=== PATIENT | female | born 1955 | race Caucasian/White ===

== ENCOUNTER → 2018-05-22 | Outpatient (CLI) | payer OTHER ==
[~2018-05-22] MED LIST: cymbalta; gabapentin; losartan; metformin; pravastatin; seroquel
--- NOTE | 2018-05-22 16:48 | Diagnostic Imaging Report ---
CLINICAL INDICATION: Patient was head butted by her dog, patient has pain and swelling to nose. EXAM: X-ray of the skull, multiple views, and lateral nasal bone views. COMPARISON: None. FINDINGS AND IMPRESSION: 1: There is no craniofacial fracture. The nasal bone is intact. There is leftward nasal septal deviation which may be chronic. Of note, x-rays of the skull have low sensitivity for subtle craniofacial fractures. If there is continued concern, maxillofacial CT scan would better evaluate. 2: The visualized paranasal sinuses are grossly unremarkable. Dictated by: Dictated on workstation # [id number]
== END ==
LOC: RAD FS 15:54
PROVIDERS: ATTEND Family Medicine
DX: S09.92XA Unspecified injury of nose, initial encounter (principal); J34.2 Deviated nasal septum; W54.1XXA Struck by dog, initial encounter
CPT/HCPCS: 70160

== ENCOUNTER 2018-07-14 05:42 | Outpatient (CLI) | payer MEDICARE ==
[~2018-07-14] VITALS: Ht 157.5 cm; Wt 57.8 kg
[2018-07-14] MEDS ORDERED: CITA10TA7 PO (10:14)
[2018-07-14] MEDS ORDERED: VARE1TAB22 PO (10:14)
[2018-07-14] MEDS ORDERED: CYCL10TA9 PO (10:14)
[2018-07-14] MEDS ORDERED: LISI1TAB10 PO (10:14)
[2018-07-14] MEDS ORDERED: TRAZ150T72 PO (10:14)
[2018-07-14] MEDS ORDERED: ATOR20TA66 PO (10:14)
[2018-07-14] MEDS ORDERED: CARV12.53 PO (10:14)
[2018-07-14] MEDS ORDERED: PANT40TA3 PO (10:14)
[2018-07-14] MEDS ORDERED: GLIP10TA13 PO (10:14)
[2018-07-14] MEDS ORDERED: METF-399 PO (10:14)
== END 2018-07-14 10:21 | disposition home or self-care (01) ==
LOC: PREOP 05:42
PROVIDERS: ATTEND Surgery
DX: Z01.818 Encounter for other preprocedural examination (principal)

== ENCOUNTER 2018-07-18 09:38 | Day surgery (SDC) | payer MEDICARE ==
[2018-07-18] VITALS (11 sets, daily range): BP systolic 143–226; BP diastolic 78–115
[~2018-07-18] VITALS: Ht 157.5 cm; Wt 57.8 kg
[~2018-07-18 09:38] MED LIST changes: +ATOR20TA66 PO; +CARV12.53 PO; +CITA10TA7 PO; +CYCL10TA9 PO; +GLIP10TA13 PO; +LISI1TAB10 PO; +METF-399 PO; +PANT40TA3 PO; +TRAZ150T72 PO; +VARE1TAB22 PO
--- OUTSIDE RECORDS SUMMARY | 2018-07-18 09:41 | XMS REPORT | Continuity of Care Document ---
Author Organization Unknown Address Unknown Allergies Active Description Code Type Severity Reaction Onset Reported/Identified Relationship to Patient Clinical Status Yes venom-honey bee [id number] Drug Allergy Unknown N/A 08/24/2013 Medications There is no data. Problems Date Dx Coded Attending Type Code Diagnosis Diagnosed By 08/25/2013 MARK WHITNEY MD Ot 305.20 CANNABIS ABUSE-UNSPEC 08/25/2013 MARK WHITNEY MD Ot 305.90 DRUG ABUSE NEC-UNSPEC 08/25/2013 MARK WHITNEY MD Ot 438.89 OTH LATE EFFECT-CEREBROVASCULAR DISEASE 08/25/2013 MARK WHITNEY MD Ot 728.87 MUSCLE WEAKNESS (GENERALIZED) 08/25/2013 MARK WHITNEY MD Ot 780.97 ALTERED MENTAL STATUS 08/25/2013 MARK WHITNEY MD Ot V15.88 HISTORY OF FALL 08/25/2013 MARK WHITNEY MD Ot V71.4 OBSERV-ACCIDENT NEC 05/22/2018 KHUSHI TILLMAN DO Ot 575.8 DIS OF GALLBLADDER NEC 05/29/2018 ALISON LEOS MD Ot J34.2 DEVIATED NASAL SEPTUM 05/29/2018 ALISON LEOS MD Ot S09.92XA UNSPECIFIED INJURY OF NOSE, INITIAL ENCO 05/29/2018 ALISON LEOS MD Ot W54.1XXA STRUCK BY DOG, INITIAL ENCOUNTER 06/05/2018 ALISON LEOS MD, Ot J34.2 DEVIATED NASAL SEPTUM 06/05/2018 ALISON LEOS MD Ot S09.92XA UNSPECIFIED INJURY OF NOSE, INITIAL ENCO 06/05/2018 ALISON LEOS MD Ot W54.1XXA STRUCK BY DOG, INITIAL ENCOUNTER 06/05/2018 KHUSHI TILLMAN DO Ot 575.8 DIS OF GALLBLADDER NEC 06/05/2018 ALISON LEOS MD, Ot J34.2 DEVIATED NASAL SEPTUM 06/05/2018 SELF ALISON GABRIEL Ot S09.92XA UNSPECIFIED INJURY OF NOSE, INITIAL ENCO 06/05/2018 SELF ALISON GABRIEL Ot W54.1XXA STRUCK BY DOG, INITIAL ENCOUNTER 06/06/2018 SELF ALISON GABRIEL Ot J34.2 DEVIATED NASAL SEPTUM 06/06/2018 SELF ALISON GABRIEL Ot S09.92XA UNSPECIFIED INJURY OF NOSE, INITIAL ENCO 06/06/2018 SELF ALISON GABRIEL Ot W54.1XXA STRUCK BY DOG, INITIAL ENCOUNTER 06/11/2018 SELF ALISON GABRIEL Ot J34.2 DEVIATED NASAL SEPTUM 06/11/2018 SELF ALISON GABRIEL Ot S09.92XA UNSPECIFIED INJURY OF NOSE, INITIAL ENCO 06/11/2018 SELF ALISNO GABRIEL Ot W54.1XXA STRUCK BY DOG, INITIAL ENCOUNTER Procedures There is no data. Results There is no data. Encounters ACCT No. Visit Date/Time Discharge Status Pt. Type Provider Facility Loc./Unit Complaint [id number] 05/22/2018 15:54:00 05/22/2018 23:59:59 CLS Outpatient SELF ALISON GABRIEL [facility] RAD FS S09.92XA [id number] 08/24/2013 21:21:00 08/25/2013 01:34:00 DIS Emergency MARK WHITNEY MD [facility] ER FALL-HEAD SHOULDER PAIN [id number] 02/23/2013 08:25:00 02/23/2013 23:59:59 CLS Outpatient KHUSHI TILLMAN DO [facility] RAD ENLARGED COMMON BILE DUCT [id number] 07/18/2018 11:00:00 PEN Preadmit GIANLUCA AVILA MD [facility] ENDO HX POLYPS/DYSPHAGIA [id number] 02/23/2013 08:29:03 ACT Document Registration
[2018-07-18] MEDS ORDERED: NS IV 500 ML 500 ML ONE (09:58)
[2018-07-18] MEDS ORDERED: NS IV 500 ML 500 ML IV PRN (10:34)
[2018-07-18] MEDS ORDERED: MIDAZOLAM 2 MG/2 ML (VERSED) VIAL IVP ONE (10:45)
[2018-07-18] MEDS ORDERED: LIDOCAINE JELLY 2% 6 ML SYRINGE MM PRN (10:45)
[2018-07-18] MEDS ORDERED: HURRICAINE EXT TUBE (BENZOCAINE) XX PRN (10:45)
[2018-07-18] MEDS ORDERED: fentaNYL INJECTION 100 MCG/2 ML AMP IVP ONE (10:45)
[2018-07-18] MEDS ORDERED: MELA10TA2 PO (10:53)
--- NOTE | 2018-07-18 11:06 | Conscious Sedation/ASA ---
Conscious Sedation Pre-Proced Time 11:00 ASA Score 2 For ASA 3 and 4: Consider anesthesia and medical clearance. Also, for patients with a history of failed moderate sedation consider anesthesia. Airway Lungs Heart ASA score ASA 1: a normal healthy patient ASA 2: a patient with a mild systemic disease (mid diabetes, controlled hypertension, obesity ASA 3: a patient with a severe systemic disease that limits activity (angina , COPD, prior Myocardial infarction) ASA 4: a patient with an incapacitating disease that is a constant threat to life (CHF, renal failure) ASA 5: a moribund patient not expected to survive 24 hrs. (ruptured aneurysm) ASA 6: a declared brain- patient whose organs are being harvested. For emergent operations, add the letter E after the classification Mallampati Classification Grade 2 Sedation Plan Analgesia, Amnesia, Plan communicated to team members, Discussed options with patient/fam, Discussed risks with patient/fam The patient is an appropriate candidate to undergo the planned procedure, sedation, and anesthesia. The patient immediately re-assessed prior to indication. GIANLUCA AVILA MD July 18, 2018 11:06
--- NOTE | 2018-07-18 11:07 | Progress Note-Pre Operative ---
Pre-Operative Progress Note H&P Reviewed The H&P was reviewed, patient examined and no changes noted. Date Seen by Provider: July 18, 2018 Time Seen by Provider: 11:00 Date H&P Reviewed: July 18, 2018 Time H&P Reviewed: 11:00 Pre-Operative Diagnosis: dysphagia, family hx colon ca GIANLUCA AVILA MD July 18, 2018 11:07
--- NOTE | 2018-07-18 11:08 | Discharge Inst-Surgical ---
D/C Lap Instructions-[place] Follow Up Activity as tolerated High Fiber Diet 25g or more per day Avoid Alcohol, Caffeine, Spicy [place] and Acid foods. Drink 64 fluid oz or more of fluids per day. Symptoms to Report: Fever over 101 degree F, Nausea/Vomiting If any problems/questions: Contact your physician or go to Emergency Room GIANLUCA AVILA MD July 18, 2018 11:08
[2018-07-18] MEDS ORDERED: ACETAMINOPHEN 325 MG TABLET PO PRN (11:15)
[2018-07-18] MEDS ORDERED: morphine INJ 10 MG/ML 1ML (SYR OR VIAL) IV PRN (11:15)
[2018-07-18] MEDS ORDERED: HYDROcodone/APAP 5 MG/325 MG (LORTAB) TAB PO PRN (11:15)
[2018-07-18] MEDS ORDERED: ONDANSETRON 4 MG/2 ML (SDV) Z0FRAN IV PRN (11:15)
[2018-07-18] MEDS ORDERED: fentaNYL INJECTION 100 MCG/2 ML AMP ONE ×2 (11:32)
[2018-07-18] MEDS ORDERED: LIDOCAINE JELLY 2% 6 ML SYRINGE ONE (11:32)
[2018-07-18] MEDS ORDERED: MIDAZOLAM 2 MG/2 ML (VERSED) VIAL ONE ×6 (11:32→11:33)
[2018-07-18] MEDS ORDERED: HURRICAINE EXT TUBE (BENZOCAINE) ONE (11:33)
--- NOTE | 2018-07-18 13:00 | Progress Note-Post Operative ---
Post-Operative Progess Note Surgeon (s)/Racing Car Driver (s) Surgeon GIANLUCA AVILA MD Racing Car Driver: none Pre-Operative Diagnosis dysphagia, family hx colon ca Post-Operative Diagnosis reflux eosphagitis(stage 2), mild distal esophageal stricture vs. achalasia, small HH(1.5cm), moderate gastritis. mild chronic stage 2 ext and int hemorrhoids. Procedure & Operative Findings Date of Procedure 07/18/18 Procedure Performed/Findings EGD with bx. Colonoscopy. Anesthesia Type cs Estimated Blood Loss Estimated blood loss (mL): minimal Specimens/Packing Specimens Removed ge jxn, antrum. GIANLUCA AVILA MD July 18, 2018 13:00
[2018-07-18] MEDS ORDERED: ONDANSETRON 4 MG/2 ML (SDV) Z0FRAN ONE (14:17)
[2018-07-18] MEDS ORDERED: ENALAPRILAT 2.5 MG/2 ML (VASOTEC) VIAL IV ONE ×2 (14:49→15:00)
--- NOTE | 2018-07-19 00:09 | OPERATIVE REPORT ---
DATE OF SERVICE: 07/18/2018 ATTENDING PRIMARY CARE PHYSICIAN: Dr. Taylor Carmichael. PREOPERATIVE DIAGNOSES: Dysphagia, history of colon polyp. POSTOPERATIVE DIAGNOSES: Reflux esophagitis, stage II, mild distal esophageal stricture, small hiatal hernia approximately 1.5 cm in size, moderate severity gastritis, no distal obstructions, chronic stage II external and internal hemorrhoids. Remainder of the rectum and colon were normal. PROCEDURES: EGD with biopsy and balloon dilatation, colonoscopy. We then proceeded with dilatation of the distal esophagus. The balloon was placed in the stomach and pulled back to the area of the lower esophagus and dilated to 2 atmospheres of pressure with no resistance. We then proceeded to 4 atmospheres of pressure with no resistance. We then proceeded to 6 atmospheres of pressure with mild to moderate resistance and left this in place for approximately 60 seconds. The balloon was then desufflated and removed with visualization of good hemostasis as well as no mucosal tears. SURGEON: Gianluca Avila MD ANESTHESIA: Conscious sedation. ESTIMATED BLOOD LOSS: Minimal. FINDINGS: As above in the postoperative diagnoses. DISPOSITION: The patient tolerated the procedure well. INDICATIONS: The patient is a 63-year-old female who has had dysphagia in the past. She reports that with some food she has choking episodes and difficulty swallowing. When this does occur, she also does have some regurgitation. She also does have a history of gastroesophageal reflux disease and is currently on Protonix 40 mg daily. She states that she did have an upper endoscopy done approximately 5 years ago where dilatation procedure was performed. Her last colonoscopy was 5 years ago and she believes this to be normal. She states that she has had polyps in the past. She does report that she does have soft stools and diarrhea; however, this may be medication related. DESCRIPTION OF PROCEDURE: The patient was brought to the endoscopy suite, laid in the left lateral decubitus position. After adequate IV pain and sedative medications and conscious sedation anesthesia, the mouthpiece was applied. Endoscope was placed in the mouth, visualizing the pharynx and hypopharyngeal region. Vocal cords, epiglottis and vallecula identified and appeared to be normal. The endoscope was gently intubated at the esophageal opening and esophagus insufflated. The endoscope was then advanced to the first, second and third portion of esophagus to the level of the GE junction and reflux esophagitis stage II identified. There was also either a mild distal esophageal stricture versus hypertonicity of the lower esophageal sphincter tone. A biopsy was taken of the GE junction using forceps with visualization of good hemostasis. The endoscope was then advanced into the stomach and endoscope retroflexed, visualizing a small hiatal hernia approximately 1.5 cm in size. There was a moderate severity gastritis noted as well as either a submucosal lipoma or a polyp of the antrum of the stomach, which was biopsied. The endoscope was then advanced to the pylorus and the first and second portions of the duodenum, which appeared normal with no distal obstructions. The endoscope was slowly withdrawn while taking second look and suctioning of residual air with no additional findings. The patient tolerated this portion of procedure well. We will recommend the necessary lifestyle and diet accommodation including small and more frequent meals, avoidance of eating at night as well as head elevation while lying supine. She also needs to proceed with cessation of smoking, as well as caffeinated beverages and spicy, greasy and acidic foods. We will also have her continue with the Protonix daily. We also did proceed with a dilatation procedure and this may have been due to a mild distal esophageal stricture or as well as an achalasia. We will see how she does. If she has recurrence of symptoms, the next step would be esophageal manometry study to see if this is an anatomic stricture versus increased lower esophageal sphincter tone versus the possibility of the hiatal hernia causing compression and dysphagia. Under the same anesthesia, we then proceeded with the colonoscopy portion of the procedure. A digital rectal examination was performed, which revealed mild chronic stage II external and internal hemorrhoids, not actively edematous nor inflamed and no bleeding. Normal sphincter tone was felt and there were no palpable masses. The endoscope was then intubated and anus and rectum gently insufflated. The endoscope was then advanced to the valves of [place] of the rectum with no polyps or any neoplasms identified. We then proceeded with the sigmoid colon where no diverticulosis identified. We then proceeded to remainder of the descending, transverse and ascending colon to the cecum. There appeared to be a submucosal lipoma near the cecum; however, no mucosal lesions or polyps identified. Endoscope was then slowly withdrawn while taking a second look and suctioning of residual air with no additional findings. The patient tolerated the procedure well. We will recommend adding fiber to her diet and titrate on a daily basis to promote soft stools on a daily basis, not liquid diarrhea daily as well as no constipation or formed stools. She does not have any family history of colon cancer. She may wait another 10 years for next colonoscopy; however, sooner if she becomes symptomatic. Job ID: [id number] DocumentID: [id number] Dictated Date: 07/18/2018 12:52:58 Casting House Worker Date: 07/19/2018 00:08:30 Dictated By: GIANLUCA AVILA MD
== END 2018-07-18 15:35 | disposition home or self-care (01) ==
LOC: ENDO 09:38
PROVIDERS: ATTEND Surgery
DX: Z12.11 Encounter for screening for malignant neoplasm of colon (principal); K64.1 Second degree hemorrhoids; Z87.19 Personal history of other diseases of the digestive system; K22.0 Achalasia of cardia; K22.2 Esophageal obstruction; K21.0 Gastro-esophageal reflux disease with esophagitis; K44.9 Diaphragmatic hernia without obstruction or gangrene; K29.70 Gastritis, unspecified, without bleeding; E11.9 Type 2 diabetes mellitus without complications; I10 Essential (primary) hypertension; E78.00 Pure hypercholesterolemia, unspecified; F17.210 Nicotine dependence, cigarettes, uncomplicated; Z79.84 Long term (current) use of oral hypoglycemic drugs; Z79.899 Other long term (current) drug therapy
CPT/HCPCS: 43239; 43249; G0121; 82962; 88305

== ENCOUNTER → 2018-10-27 | Outpatient (CLI) | payer MEDICARE ==
[~2018-10-27] MED LIST changes: +MELA10TA2 PO
--- NOTE | 2018-10-27 15:55 | Diagnostic Imaging Report ---
PROCEDURE: US Bilateral lower extremity arterial. TECHNIQUE: Multiple real-time grayscale images are obtained through both lower extremity arterial systems with color Doppler imaging and color Doppler spectral analysis. INDICATION: Claudication. FINDINGS: Monophasic waveforms are identified throughout the entire right lower extremity arterial system. Velocities are unremarkable. No high-grade stenosis or occlusion is seen. There is predominately biphasic waveforms throughout the left lower extremity arterial system. No definite high-grade stenosis or occlusion is seen. No fluid collections are identified. IMPRESSION: Monophasic waveforms throughout the right lower extremity arterial system, perhaps owing to more proximal disease. No definite high-grade stenosis or occlusion is identified within either lower extremity arterial system. Dictated by: Dictated on workstation # [id number]
== END ==
LOC: RAD 11:50
PROVIDERS: ATTEND Family Medicine
DX: I73.9 Peripheral vascular disease, unspecified (principal); I10 Essential (primary) hypertension
CPT/HCPCS: 93925

== ENCOUNTER 2018-11-13 17:32 | Emergency (ER) | payer MEDICARE ==
[~2018-11-13] VITALS: Ht 157.5 cm; Wt 56.7 kg
[2018-11-13] MEDS ORDERED: ASPIRIN E.C. 81 MG (ECOTRIN) TAB PO ONE (17:45)
[2018-11-13 17:49] LABS: BASOPHILS % (AUTO) 1 % (0-10); EOSINOPHILS # (AUTO) 0.2 10^3/uL (0.0-0.3); EOSINOPHILS % (AUTO) 2 % (0-10); HEMATOCRIT 38 % (35-52); HEMOGLOBIN 14.1 G/DL (11.5-16.0); LYMPHOCYTES # (AUTO) 2.9 X 10^3 (1.0-4.0); LYMPHOCYTES % (AUTO) 36 % (12-44); MEAN CORPUSCULAR HEMOGLOBIN 33 PG (25-34); MEAN CORPUSCULAR HGB CONC 37 G/DL (32-36); MEAN CORPUSCULAR VOLUME 88 FL (80-99); MONOCYTES # (AUTO) 0.7 X 10^3 (0.0-1.0); MONOCYTES % (AUTO) 9 % (0-12); NEUTROPHILS # (AUTO) 4.4 X 10^3 (1.8-7.8); NEUTROPHILS % (AUTO) 53 % (42-75); PLATELET COUNT 254 10^3/uL (130-400); RED CELL DISTRIBUTION WIDTH 11.8 % (10.0-14.5); WHITE BLOOD COUNT 8.3 10^3/uL (4.3-11.0)
--- NOTE | 2018-11-13 17:50 | ED General ---
General Stated Complaint: HTN Source of Information: Patient Exam Limitations: No Limitations History of Present Illness Date Seen by Provider: Nov 13, 2018 Time Seen by Provider: 17:45 Initial Comments To ER per EMS with reports of hypertension. She initially presented to her eye doctor, Dr. Michaud this morning and was advised that she should go see a doctor because of her high blood pressure. She then went to urgent care this afternoon where she was found to have a high blood pressure of 230/123 with a heart rate in the 70s. She developed an episode of chest pressure lasting a few minutes and resolved. She does have a history of "a blockage outside my heart that he opened up". She does not have any coronary stents that she is aware of. This was done in [place]. She did have an ultrasound done of leg arteries due to "burning in my legs when i walk". Smoked 1 pack of cigarettes daily from age 11 to age 63, quit 1 week ago. Shes been out of her blood pressure medication for 1 month. U isac arrival to ER, she is asymptomatic. Timing/Duration: 1-2 Days Severity: Moderate Associated Systoms: Chest Pain Allergies and Home Medications Allergies Coded Allergies: venom-honey bee (Unverified Allergy, Unknown, 07/14/18) Home Medications Atorvastatin Calcium 20 Mg Tablet, 20 MG PO HS, (Reported) Carvedilol 12.5 Mg Tablet, 12.5 MG PO BID, (Reported) Citalopram Hydrobromide 10 Mg Tablet, 10 MG PO DAILY, (Reported) Cyclobenzaprine HCl 10 Mg Tablet, 10 MG PO TID PRN for MUSCLE SPASMS, (Reported) Glipizide 10 Mg Tablet, 10 MG PO BID, (Reported) Lisinopril/Hydrochlorothiazide 1 Each Tablet, 1 EACH PO DAILY, (Reported) Melatonin 10 Mg Tablet, 10 MG PO HS, (Reported) Metformin HCl 1,000 Mg Tablet, 1,000 MG PO BID, (Reported) Pantoprazole Sodium 40 Mg Tablet.dr, 40 MG PO DAILY, (Reported) Trazodone HCl 150 Mg Tablet, 150 MG PO HS, (Reported) Varenicline Tartrate 1 Mg Tablet, 1 MG PO BID, (Reported) Patient Home Medication List Home Medication List Reviewed: Yes Review of Systems Review of Systems Constitutional: see HPI EENTM: see HPI Respiratory: no symptoms reported, dyspnea on exertion Genitourinary: no symptoms reported Musculoskeletal: no symptoms reported Skin: no symptoms reported Psychiatric/Neurological: No Symptoms Reported Hematologic/Lymphatic: No Symptoms Reported Past Xscrbny-Ktdgzb-Ukbosz Hx Patient Social History Type Used: Cigarettes 2nd Hand Smoke Exposure: Yes Recent Hopitalizations: No Immunizations Up To Date Date of Pneumonia Vaccine: Dec 23, 2017 Date of Influenza Vaccine: Dec 23, 2017 Seasonal Allergies Seasonal Allergies: Yes Past Medical History Surgeries: Yes (BACK, R SHOULDER, R WRIST, R KNEE, BILAT MASTECTOMY W/IMPLANTS) Adenoidectomy, Appendectomy, Gallbladder, Hysterectomy, Oophorectomy, Tonsillectomy Respiratory: No Cardiac: Yes (ANGIOPLASTY) High Cholesterol, Hypertension Neurological: Yes Stroke Sexually Transmitted Disease: No HIV/AIDS: No Genitourinary: No Gastrointestinal: Yes Gastroesophageal Reflux Musculoskeletal: Yes Arthritis Endocrine: Yes Diabetes, Non-Insulin dep HEENT: Yes (GLASSES, DENTURES) Cataract Loss of Vision: Bilateral Hearing Impairment: Denies Cancer: Yes Breast Did You Recieve Any Treatments: Yes What Type of Treatment Did You: Surgical Intervention Psychosocial: Yes Depression Integumentary: No Blood Disorders: No Adverse Reaction/Blood Tranf: No (N/A) Physical Exam Vital Signs Vital Signs - First Documented 11/13/18 17:32 Temp 98.2 Pulse 78 Resp 16 B/P (MAP) 219/100 (139) Pulse Ox 98 Capillary Refill : Height, Weight, BMI Height: 5'2.00" Weight: 127lbs. 6.0oz. 57.764045js; 23.3 BMI Method:Stated General Appearance: No Apparent Distress, WD/WN Eyes: Bilateral Eye Normal Inspection, Bilateral Eye PERRL, Bilateral Eye EOMI HEENT: PERRL/EOMI, TMs Normal Neck: Full Range of Motion, Normal Inspection Respiratory: No Accessory Muscle Use, No Respiratory Distress Cardiovascular: Regular Rate, Rhythm, Normal Peripheral Pulses Gastrointestinal: Normal Bowel Sounds, Non Tender, Soft Extremity: Normal Capillary Refill, Normal Inspection, Other (has equal pulses posterior tibial bilaterally +1 and strength. Both feet are equal in temperature) Neurologic/Psychiatric: Alert, Oriented x3 Skin: Normal Color, Warm/Dry Progress/Results/Core Measures Suspected Sepsis SIRS Temperature: Pulse: Respiratory Rate: Laboratory Tests 11/13/18 17:39: White Blood Count 8.3 Blood Pressure / Mean: Laboratory Tests 11/13/18 17:39: Creatinine 0.80, Platelet Count 254, Total Bilirubin 0.6 Results/Orders Lab Results Laboratory Tests Test 11/13/18 17:39 11/13/18 20:12 Range/Units White Blood Count 8.3 4.3-11.0 10^3/uL Red Blood Count 4.33 L 4.35-5.85 10^6/uL Hemoglobin 14.1 11.5-16.0 G/DL Hematocrit 38 35-52 % Mean Corpuscular Volume 88 80-99 FL Mean Corpuscular Hemoglobin 33 25-34 PG Mean Corpuscular Hemoglobin Concent 37 H 32-36 G/DL Red Cell Distribution Width 11.8 10.0-14.5 % Platelet Count 254 130-400 10^3/uL Mean Platelet Volume 10.0 7.4-10.4 FL Neutrophils (%) (Auto) 53 42-75 % Lymphocytes (%) (Auto) 36 12-44 % Monocytes (%) (Auto) 9 0-12 % Eosinophils (%) (Auto) 2 0-10 % Basophils (%) (Auto) 1 0-10 % Neutrophils # (Auto) 4.4 1.8-7.8 X 10^3 Lymphocytes # (Auto) 2.9 1.0-4.0 X 10^3 Monocytes # (Auto) 0.7 0.0-1.0 X 10^3 Eosinophils # (Auto) 0.2 0.0-0.3 10^3/uL Basophils # (Auto) 0.0 0.0-0.1 10^3/uL Sodium Level 140 135-145 MMOL/L Potassium Level 3.3 L 3.6-5.0 MMOL/L Chloride Level 105 98-107 MMOL/L Carbon Dioxide Level 22 21-32 MMOL/L Anion Gap 13 5-14 MMOL/L Blood Urea Nitrogen 11 7-18 MG/DL Creatinine 0.80 0.60-1.30 MG/DL Estimat Glomerular Filtration Rate > 60 BUN/Creatinine Ratio 14 Glucose Level 109 H 70-105 MG/DL Calcium Level 10.0 8.5-10.1 MG/DL Corrected Calcium 9.6 8.5-10.1 MG/DL Magnesium Level 1.5 L 1.6-2.4 MG/DL Total Bilirubin 0.6 0.1-1.0 MG/DL Aspartate Amino Transf (AST/SGOT) 18 5-34 U/L Alanine Aminotransferase (ALT/SGPT) 24 0-55 U/L Alkaline Phosphatase 60 40-136 U/L Troponin I < 0.028 < 0.028 <0.028 NG/ML B-Type Natriuretic Peptide 87.0 <100.0 PG/ML Total Protein 7.1 6.4-8.2 GM/DL Albumin 4.5 3.2-4.5 GM/DL My Orders Orders - MARTHA TAPIA APRN Cbc With Automated Diff (11/13/18 17:43) Comprehensive Metabolic Panel (11/13/18 17:43) Ua Culture If Indicated (11/13/18 17:43) Ed Iv/Invasive Line Start (11/13/18 17:43) Troponin I (11/13/18 17:43) BNP (11/13/18 17:43) Magnesium (11/13/18 17:43) Ekg Tracing (11/13/18 17:43) Chest 1 View, Ap/Pa Only (11/13/18 17:43) Labetalol Injection (Normodyne Injection (11/13/18 17:45) Aspirin Tablet (Aspirin Tablet) (11/13/18 17:58) Clonidine Tablet (Catapres Tablet) (11/13/18 18:15) Aspirin Tablet (Aspirin Tablet) (11/13/18 18:30) Magnesium Oxide Tablet (Mag Ox Tablet) (11/13/18 19:00) Potassium Chloride (Tablet) (Klor Con Ta (11/13/18 19:00) Lisinopril Tablet (Zestril Tablet) (11/13/18 19:00) Troponin I (11/13/18 20:01) Medications Given in ED Current Medications Medications Dose Ordered Sig/Jennifer Route Start Time Stop Time Status Last Admin Dose Admin Aspirin 325 mg ONCE ONCE PO 11/13/18 18:30 11/13/18 18:31 DC 11/13/18 18:07 325 MG Clonidine HCl 0.2 mg ONCE ONCE PO 11/13/18 18:15 11/13/18 18:16 DC 11/13/18 18:46 0.2 MG Labetalol HCl 20 mg ONCE ONCE IV 11/13/18 17:45 11/13/18 17:46 DC 11/13/18 18:10 20 MG Lisinopril 10 mg ONCE ONCE PO 11/13/18 19:00 11/13/18 19:01 DC 11/13/18 19:51 10 MG Magnesium Oxide 400 mg ONCE ONCE PO 11/13/18 19:00 11/13/18 19:01 DC 11/13/18 19:51 400 MG Potassium Chloride 40 meq ONCE ONCE PO 11/13/18 19:00 11/13/18 19:01 DC 11/13/18 19:51 40 MEQ Vital Signs/I&O 11/13/18 17:32 Temp 98.2 Pulse 78 Resp 16 B/P (MAP) 219/100 (139) Pulse Ox 98 Capillary Refill : Departure Impression Primary Impression: Hypertensive heart disease Qualified Codes: I11.9 - Hypertensive heart disease without heart failure Disposition: HOME, SELF-CARE Condition: Stable Departure-Patient Inst. Decision time for Depature: 20:47 Referrals: [facility]/ (PCP) Primary Care Physician SAGE ALANIS MD (Family) Primary Care Physician Patient Instructions: High Blood Pressure (DC) Add. Discharge Instructions: 1. Follow-up with your doctor next week for recheck of blood pressure Scripts Lisinopril (Lisinopril) 10 Mg Tablet 10 MG PO DAILY, #14 TAB Prov: MARTHA TAPIA APRN 11/13/18 MARTHA TAPIA APRN Nov 13, 2018 17:49
[2018-11-13] MEDS ORDERED: ASPIRIN 325 MG (5 GR) TABLET ONE (17:58)
[2018-11-13] MEDS: ASPIRIN 325 MG (5 GR) TABLET PO ONE (18:07)
[2018-11-13 18:09] LABS: ALANINE AMINOTRANSFERASE 24 U/L (0-55); ALBUMIN 4.5 GM/DL (3.2-4.5); ALKALINE PHOSPHATASE 60 U/L (40-136); BILIRUBIN,TOTAL 0.6 MG/DL (0.1-1.0); BUN/CREATININE RATIO 14; CARBON DIOXIDE 22 MMOL/L (21-32); CHLORIDE 105 MMOL/L (98-107); GFR ESTIMATED > 60; GLUCOSE 109 MG/DL (70-105); MAGNESIUM 1.5 MG/DL (1.6-2.4); POTASSIUM 3.3 MMOL/L (3.6-5.0); SODIUM 140 MMOL/L (135-145); TOTAL PROTEIN 7.1 GM/DL (6.4-8.2)
[2018-11-13] MEDS: LABETALOL HCL 20 MG/4 ML VIAL IV ONE (18:10)
--- NOTE | 2018-11-13 18:30 | Diagnostic Imaging Report ---
INDICATION: Hypertension. Portable chest obtained at 6:18 p.m. is compared to 08/24/2013. FINDINGS: Heart and mediastinal silhouette are normal in appearance. The lungs are clear. There is no pneumothorax or pleural fluid. IMPRESSION: Negative chest. Dictated by: Dictated on workstation # [id number]
[2018-11-13] MEDS: cloNIDine 0.1 MG (CATAPRES) TAB PO ONE (18:46)
[2018-11-13] MEDS: lisINopril 10 MG (PRINIVIL) TABLET PO ONE (19:51)
[2018-11-13] MEDS: KCL 10 MEQ TAB (MICRO K) PO ONE (19:51)
[2018-11-13] MEDS: MAGNESIUM OXIDE (MAG-OX)400 MG TAB PO ONE (19:51)
[2018-11-13] MEDS ORDERED: LISI10TA2 PO (20:48)
[2018-11-13 20:52] VITALS: BP 146/62
== END 2018-11-13 20:55 | disposition home or self-care (01) ==
LOC: EDUNIT# 17:32 → ER 17:33
DX: I11.9 Hypertensive heart disease without heart failure (principal); E11.9 Type 2 diabetes mellitus without complications; E78.00 Pure hypercholesterolemia, unspecified; F32.9 Major depressive disorder, single episode, unspecified; K21.9 Gastro-esophageal reflux disease without esophagitis; H54.7 Unspecified visual loss; Z85.3 Personal history of malignant neoplasm of breast; Z86.73 Personal history of transient ischemic attack (TIA), and cerebral infarction without residual deficits; Z87.891 Personal history of nicotine dependence; Z79.84 Long term (current) use of oral hypoglycemic drugs; Z77.22 Contact with and (suspected) exposure to environmental tobacco smoke (acute) (chronic); Z90.89 Acquired absence of other organs; Z90.710 Acquired absence of both cervix and uterus; Z91.14 Patient's other noncompliance with medication regimen
CPT/HCPCS: 36415; 71045; 80053; 83735; 83880; 84484; 85025; 93005

== ENCOUNTER → 2019-12-02 | Outpatient (CLI) | payer MEDICARE, OTHER ==
[~2019-12-02] VITALS: Ht 157 cm; Wt 59.0 kg
[~2019-12-02] MED LIST changes: +CATHETER FLUSH 10 ML SYR IV PRN; +LISI10TA2 PO; -LISI1TAB10 PO; +LISI1TAB26 PO; -PANT40TA3 PO; +PANT40TA52 PO; +REGADENOSON 0.4 MG/5 ML SYR (LEXISCAN) IV ONE
[2019-12-02 12:14] VITALS: BP 199/119
--- NOTE | 2019-12-02 13:34 | Cardiology Stress Test Report ---
Stress Test Report Date of Procedure/Referring: Date of Procedure: Dec 02, 2019 PCP Catherine Monique MD Admitting Physician Center/[facility] Indications: Chest pain Baseline Heart Rate: 75 Baseline Blood Pressure: Blood Pressure Systolic: 199 Blood Pressure Diastolic: 119 Baseline Vitals Vital Signs Date Time Temp Pulse Resp B/P (MAP) Pulse Ox O2 Delivery O2 Flow Rate FiO2 12/02/19 12:14 80 18 199/119 (145) 97 Room Air Baseline EKG: Baseline EKG: normal sinus rhythm Summary After explaining the procedure to the patient, she signed a consent and then brought to the stress nuclear laboratory. Patient received 0.4 mg Lexiscan for stress test, ECG, heart rate and blood pressure were monitored continuously. Resting and stress dose of radio tracer were injected, imaging was acquired and reviewed in short axis, horizontal long axis and vertical long axis views. TID: 1.03 SSS: 1 SDS: 1 EF: 62 1. Patient tolerated Lexiscan well 2. No significant ischemia or infarction on SPECT images 3. Normal left ventricular size, EF 62 percent CATHERINE MONIQUE MD Dec 02, 2019 13:34
== END ==
LOC: CARD 10:38
PROVIDERS: ATTEND Internal Medicine Cardiovascular Disease
DX: E11.9 Type 2 diabetes mellitus without complications (principal); I10 Essential (primary) hypertension; E78.2 Mixed hyperlipidemia; R07.89 Other chest pain
CPT/HCPCS: 78452; 93017; A9502

== ENCOUNTER → 2019-12-10 | Outpatient (CLI) | payer MEDICARE ==
[~2019-12-10] MED LIST changes: -CATHETER FLUSH 10 ML SYR IV PRN; -REGADENOSON 0.4 MG/5 ML SYR (LEXISCAN) IV ONE
--- NOTE | 2019-12-10 14:53 | Diagnostic Imaging Report ---
CT Lung Screening INDICATION:50 pack-year smoking history TECHNIQUE: Noncontrast, low-dose CT imaging performed according to the lung cancer screening protocol. Auto Exposure Controls were utilize during the CT exam to meet ALARA standards for radiation dose reduction. COMPARISON:None FINDINGS: There is no parenchymal lung mass identified. There are mild chronic pulmonary changes bilaterally. There is no sign of failure, pneumonia or a pleural effusion to indicate an acute cardiopulmonary abnormality. The heart size is within normal limits. There are coronary calcifications evident. The aorta is not abnormally dilated. There is no obvious mediastinal or hilar adenopathy. The thyroid gland was partially obscured by streak artifact. However there does seem to be a 6 mm low density nodule in the left lobe of the thyroid. Ultrasound would be recommended for further evaluation. There are bilateral breast implants in place. The implants where visualized seem to be intact. The bone windows show no sign of a fracture or of a destructive lesion. There is degenerative disc and bone disease throughout the thoracic spine, particularly at the T3-T4 level. The sections through the upper abdomen failed to show any sign of an acute abnormality. IMPRESSION: 1. There is no parenchymal lung mass identified to suggest malignancy. A followup low dose lung cancer screening exam in one year would be recommended for further study. 2. There is mild chronic pulmonary disease but there is no evidence for an acute cardiopulmonary abnormality. 3. Ultrasound would be recommended for further evaluation of the 6 mm low density nodule in the left lobe of the thyroid. LUNG-RADS CATEGORY:1S MODIFIER:Thyroid nodule OTHER SIGNIFICANT FINDINGS: Dictated by: Dictated on workstation # [id number]
== END ==
LOC: RAD 14:15
PROVIDERS: ATTEND Nurse Practitioner Family
DX: Z12.2 Encounter for screening for malignant neoplasm of respiratory organs (principal); J98.4 Other disorders of lung; Z87.891 Personal history of nicotine dependence

== ENCOUNTER 2020-04-28 10:37 | Emergency (ER) | payer MEDICARE ==
[~2020-04-28] VITALS: Ht 157.4 cm; Wt 59.5 kg
[~2020-04-28 10:37] MED LIST changes: -LISI10TA2 PO; +LISI10TA25 PO
--- NOTE | 2020-04-28 10:59 | ED Syncope ---
General Stated Complaint: PATEL,N/V Source of Information: Patient, EMS Exam Limitations: No Limitations History of Present Illness Date Seen by Provider: Apr 28, 2020 Time Seen by Provider: 10:45 Initial Comments Patient presents to the ER by EMS from [facility] with chief complaint she walked to the clinic because she she passed out last night was afraid she might pass out again so she did not drive. She said she has chronic nausea and vomiting and last night while bending over into a trash can to retch she lost consciousness and fell forward striking her face causing a small cut on her nose from her eyeglasses. She has a headache today but has not taken anything for the headache. She was advised by the clinic that she could not take anything by mouth because she might have a concussion. Patient denies any fever diarrhea sick contacts cough shortness of air. She denies a history of heart disease. PCP is [facility] at [facility]. Patient notes she has had poor appetite for the past couple days which she says is not unusual for her. She has diabetes but did not check her blood sugar at the time of her syncope because she did not have a kit. She has been out of her medicines for about 2 or 3 days and has not had anything by mouth since yesterday. Patient had a negative stress test by Dr. Morocho in November 2019, 5 months ago. EF of 62%. Allergies and Home Medications Allergies Coded Allergies: venom-honey bee (Unverified Allergy, Unknown, 07/14/18) Home Medications Atorvastatin Calcium 20 Mg Tablet, 20 MG PO HS, (Reported) Carvedilol 12.5 Mg Tablet, 12.5 MG PO BID, (Reported) Citalopram Hydrobromide 10 Mg Tablet, 10 MG PO DAILY, (Reported) Cyclobenzaprine HCl 10 Mg Tablet, 10 MG PO TID PRN for MUSCLE SPASMS, (Reported) Glipizide 10 Mg Tablet, 10 MG PO BID, (Reported) Lisinopril 10 Mg Tablet, 10 MG PO DAILY Prescribed by: MARTHA TAPIA on 11/13/182047 Lisinopril/Hydrochlorothiazide 1 Each Tablet, 1 EACH PO DAILY, (Reported) Melatonin 10 Mg Tablet, 10 MG PO HS, (Reported) Metformin HCl 1,000 Mg Tablet, 1,000 MG PO BID, (Reported) Ondansetron 4 Mg Tab.rapdis, 4 MG PO Q6H PRN for NAUSEA/VOMITING Prescribed by: TRINIDAD PAYTON on 04/28/20 1228 Pantoprazole Sodium 40 Mg Tablet.dr, 40 MG PO DAILY, (Reported) Trazodone HCl 150 Mg Tablet, 150 MG PO HS, (Reported) Varenicline Tartrate 1 Mg Tablet, 1 MG PO BID, (Reported) Patient Home Medication List Home Medication List Reviewed: Yes Review of Systems Constitutional: No chills, No fever, No malaise, No weakness EENTM: No ear discharge, No ear pain Respiratory: No cough, No short of breath Cardiovascular: see HPI; No chest pain, No edema, No Hx of Intervention, No palpitations; syncope; No vascular heart diseas Gastrointestinal: No abdominal pain, No nausea, No vomiting Genitourinary: No discharge, No dysuria Control/STD Prophylaxis: None Musculoskeletal: No back pain, No joint pain; neck pain (Bilateral neck soreness) Psychiatric/Neurological: Denies Anxiety, Denies Depressed All Other Systems Reviewed Negative Unless Noted: Yes Past Cwczfhq-Mufiwt-Awlvcp Hx Patient Social History Alcohol Use: Denies Use Smoking Status: Former Smoker Type Used: Cigarettes Former Smoker, Quit: Nov 06, 2018 2nd Hand Smoke Exposure: Yes Recent Hopitalizations: No Immunizations Up To Date Date of Pneumonia Vaccine: Dec 23, 2017 Date of Influenza Vaccine: Dec 23, 2017 Seasonal Allergies Seasonal Allergies: Yes Past Medical History Surgeries: Yes (BACK, R SHOULDER, R WRIST, R KNEE, BILAT MASTECTOMY W/IMPLANTS) Adenoidectomy, Appendectomy, Gallbladder, Hysterectomy, Oophorectomy, Tonsillectomy Respiratory: No Cardiac: Yes (ANGIOPLASTY) High Cholesterol, Hypertension Neurological: Yes Stroke Sexually Transmitted Disease: No HIV/AIDS: No Genitourinary: No Gastrointestinal: Yes Gastroesophageal Reflux Musculoskeletal: Yes Arthritis Endocrine: Yes Diabetes, Non-Insulin dep HEENT: Yes (GLASSES, DENTURES) Cataract Loss of Vision: Bilateral Hearing Impairment: Denies Cancer: Yes Breast Did You Recieve Any Treatments: Yes What Type of Treatment Did You: Surgical Intervention Psychosocial: Yes Anxiety, Depression Integumentary: No Blood Disorders: No Adverse Reaction/Blood Tranf: No (N/A) Physical Exam Vital Signs Vital Signs - First Documented 04/28/20 11:05 Temp 36.2 Pulse 100 Resp 18 B/P (MAP) 181/109 (133) Pulse Ox 97 O2 Delivery Room Air Capillary Refill : Height, Weight, BMI Height: 5'2.00" Weight: 125lbs. 6.0oz. [id number]; 23.93 BMI Method:Stated General Appearance: No Apparent Distress, WD/WN HEENT: PERRL/EOMI, TMs Normal (Negative for hemotympanums), Normal ENT Inspection (Negative for torres sign or raccoon eyes. Small 6 mm healed, superficial laceration on the bridge of the nose); No Moist Mucous Membranes (Significantly dry oral mucosa) Neck: Full Range of Motion, Normal Inspection, Supple, Tender Lateral (Mildly tender to palpation bilaterally without step-off or deformity.) Cardiovascular: Regular Rate, Rhythm, No Edema, No Gallop, No JVD, No Murmur, Normal Peripheral Pulses Respiratory: Lungs Clear, Normal Breath Sounds, No Accessory Muscle Use, No Respiratory Distress Gastrointestinal: Non Tender, Soft Extremities: Normal Capillary Refill, Normal Inspection, Non Tender, No Pedal Edema Neurologic/Psychiatric: Alert, Oriented x3, No Motor/Sensory Deficits Cranial Nerves: Normal Hearing, Normal Speech, PERRL Motor/Sensory: No Motor Deficit, No Sensory Deficit Skin: Normal Color, Warm/Dry, Other (6 mm superficial, dry, hemostatic, laceration over the bridge of the nose) Progress/Results/Core Measures Results/Orders Lab Results Laboratory Tests Test 04/28/20 11:00 04/28/20 11:22 Range/Units White Blood Count 11.5 H 4.3-11.0 10^3/uL Red Blood Count 4.68 3.80-5.11 10^6/uL Hemoglobin 15.0 11.5-16.0 g/dL Hematocrit 41 35-52 % Mean Corpuscular Volume 88 80-99 fL Mean Corpuscular Hemoglobin 32 25-34 pg Mean Corpuscular Hemoglobin Concent 37 H 32-36 g/dL Red Cell Distribution Width 11.7 10.0-14.5 % Platelet Count 255 130-400 10^3/uL Mean Platelet Volume 9.9 9.0-12.2 fL Immature Granulocyte % (Auto) 0 % Neutrophils (%) (Auto) 73 42-75 % Lymphocytes (%) (Auto) 20 12-44 % Monocytes (%) (Auto) 6 0-12 % Eosinophils (%) (Auto) 1 0-10 % Basophils (%) (Auto) 0 0-10 % Neutrophils # (Auto) 8.3 H 1.8-7.8 10^3/uL Lymphocytes # (Auto) 2.3 1.0-4.0 10^3/uL Monocytes # (Auto) 0.7 0.0-1.0 10^3/uL Eosinophils # (Auto) 0.1 0.0-0.3 10^3/uL Basophils # (Auto) 0.1 0.0-0.1 10^3/uL Immature Granulocyte # (Auto) 0.0 0.0-0.1 10^3/uL Erythrocyte Sedimentation Rate 5 0-30 MM/HR Sodium Level 137 135-145 MMOL/L Potassium Level 3.4 L 3.6-5.0 MMOL/L Chloride Level 100 98-107 MMOL/L Carbon Dioxide Level 24 21-32 MMOL/L Anion Gap 13 5-14 MMOL/L Blood Urea Nitrogen 16 7-18 MG/DL Creatinine 1.19 0.60-1.30 MG/DL Estimat Glomerular Filtration Rate 46 BUN/Creatinine Ratio 13 Glucose Level 129 H 70-105 MG/DL Calcium Level 9.9 8.5-10.1 MG/DL Corrected Calcium 8.5-10.1 MG/DL Total Bilirubin 1.0 0.1-1.0 MG/DL Aspartate Amino Transf (AST/SGOT) 17 5-34 U/L Alanine Aminotransferase (ALT/SGPT) 24 0-55 U/L Alkaline Phosphatase 74 40-136 U/L Troponin I < 0.028 <0.028 NG/ML C-Reactive Protein High Sensitivity 0.05 0.00-0.50 MG/DL B-Type Natriuretic Peptide 12.7 <100.0 PG/ML Total Protein 7.7 6.4-8.2 GM/DL Albumin 4.7 H 3.2-4.5 GM/DL Serum Alcohol < 10 <10 MG/DL Urine Color YELLOW Urine Clarity CLEAR Urine pH 5.5 5-9 Urine Specific [place] >=1.030 1.016-1.022 Urine Protein TRACE H NEGATIVE Urine Glucose (UA) NEGATIVE NEGATIVE Urine Ketones TRACE H NEGATIVE Urine Nitrite NEGATIVE NEGATIVE Urine Bilirubin NEGATIVE NEGATIVE Urine Urobilinogen 0.2 < = 1.0 MG/DL Urine Leukocyte Esterase 1+ H NEGATIVE Urine RBC (Auto) NEGATIVE NEGATIVE Urine RBC NONE /HPF Urine WBC 10-25 H /HPF Urine Squamous Epithelial Cells 10-25 H /HPF Urine Renal Epithelial Cells 2-5 /HPF Urine Crystals PRESENT H /LPF Urine Amorphous Sediment FEW DARA URATES H /LPF Urine Bacteria MODERATE H /HPF Urine Casts PRESENT /LPF Urine Hyaline Casts 0-2 H /LPF Urine Mucus SMALL H /LPF Urine Culture Indicated YES My Orders Orders - TRINIDAD PAYTON Cbc With Automated Diff (04/28/20 10:52) Comprehensive Metabolic Panel (04/28/20 10:52) Hs C Reactive Protein (04/28/20 10:52) Erythrocyte Sedimentation Rate (04/28/20 10:52) Ekg Tracing (04/28/20 10:52) Continuous Ekg Monitoring (04/28/20 10:52) Troponin I (04/28/20 10:52) BNP (04/28/20 10:52) Ua Culture If Indicated (04/28/20 10:52) Alcohol (04/28/20 10:52) Orthostatic Vital Signs (Adult (04/28/20 10:52) Lactated Ringers (Lr 1000 Ml Iv Solution (04/28/20 11:00) Ct Head/Cervical Spine Wo (04/28/20 10:52) Urine Culture (04/28/20 11:22) Ketorolac Injection (Toradol Injection) (04/28/20 12:30) Lactated Ringers (Lr 1000 Ml Iv Solution (04/28/20 12:30) Medications Given in ED Current Medications Medications Dose Ordered Sig/Jennifer Route Start Time Stop Time Status Last Admin Dose Admin Ketorolac Tromethamine 30 mg ONCE ONCE IVP 04/28/20 12:30 04/28/20 12:31 DC 04/28/20 12:28 30 MG Lactated Ringer's 1,000 ml @ 0 mls/hr Q0M ONCE IV 04/28/20 11:00 04/28/20 11:01 DC 04/28/20 11:22 1,000 MLS/HR Vital Signs/I&O 04/28/20 04/28/20 11:05 11:15 Temp 36.2 Pulse 100 93 91 114 Resp 18 B/P (MAP) 181/109 (133) 159/93 (115) 175/85 (115) 137/97 (110) Pulse Ox 97 O2 Delivery Room Air Progress Progress Note #1: Time: 11:01 Progress Note Plan to obtain a CT of her head and cervical spine after syncopal episode and fall. She is on aspirin but no blood thinners. Plan to give her something for her headache after we have cleared her for a head bleed. Tylenol and/or Toradol would be recommended. Plan to check some labs including troponin, BNP, EKG and perform a [place] syncope risk score. Orthostatic vital signs. We will give her a liter of lactated Ringer's as she appears to be clinically dehydrated. Urinalysis to evaluate for infection and also kidney and dehydration status. Progress Note #2: Time: 11:17 Progress Note Orthostatics are significantly positive with a greater than 20 mmHg drop on the systolic pressure from lying to standing. This would coincide with her dehy dration on clinical exam. Progress Note #3: Time: 12:26 Progress Note Orthostatic hypotension related to dehydration related to her recent nausea and vomiting which is chronic. We will send her some Zofran and have her follow-up with primary care. Toradol for her headache. Progress Note #4: Time: 13:11 Progress Note Patient's headache is feeling significantly improved after the Toradol. She still appears to be mildly dry on clinical exam and we did offer her a second liter of fluids which she accepted. 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 Initial ECG Impression Date: Apr 28, 2020 Initial ECG Impression Time: 10:48 Initial ECG Rate: 94 Initial ECG Rhythm: Normal Sinus Initial ECG Intervals: QT (461) Initial ECG Impression: Normal Initial ECG Comparisson: Unchanged Comment Normal sinus rhythm without clinically relevant ST elevation or depression. Diagnostic Imaging Diagonstic Imaging: CT Plain Films/CT/US/NM/MRI: c-spine, head Comments NAME: PRITI RAMIREZ [facility] REC#: [id number] PT STATUS: REG ER : 1955 PHYSICIAN: TRINIDAD PAYTON MD ADMIT DATE: 04/28/20/ER Draft Date of Exam:04/28/20 CT HEAD/CERVICAL SPINE WO PROCEDURE: CT head and CT cervical spine without contrast. TECHNIQUE: Multiple contiguous axial images were obtained through the brain and cervical spine without the use of intravenous contrast. Sagittal and coronal reformations through the cervical spine were then performed. Auto Exposure Controls were utilized during the CT exam to meet ALARA standards for radiation dose reduction. INDICATION: Syncope and head pain COMPARISON with exam 08/24/2013. Chronic encephalomalacia and old white matter infarcts in the right basal ganglia and adjacent to the frontal horn of the right lateral ventricle are stable. Some chronic cerebral cortical volume loss without terrence hydrocephalus. Chronic periventricular white matter small vessel disease showed no substantial interval progression. There is no hemorrhage and no acute extra-axial fluid collection. There are chronic intracranial atherosclerotic vascular calcifications. No mass or mass effect. The orbits, sinuses and calvarium are within normal limits. Findings of grade 1 anterolisthesis of C4 on C5 as a new finding. The facet relationships aside from degenerative hypertrophy were otherwise unremarkable. There is no paraspinal soft tissue swelling or hematoma. This is presumed to be progressive degenerative malalignment. There is pancervical spondylosis with disc space narrowing, endplate sclerosis, osteophytes, uncovertebral joint spurring and facet arthrosis showing progression throughout the cervical spine. Disc space narrowing most severe at C5-C6. There is a substantial burden of cervical carotid atherosclerotic vascular calcifications. The central skull base appeared intact. There was no cervical fracture or dislocation. IMPRESSION: CT HEAD: 1. Stable chronic findings. No hemorrhage, fracture, edema or acute finding. CT CERVICAL SPINE: 1. Progressive degenerative changes are believed to account for new grade 1 anterolisthesis of C4 on 5 with no cervical fracture or facet joint dislocation. 2. Cervical carotid atherosclerotic vascular calcifications. Dictated on workstation # [id number] Dict: 04/28/20 1200 Trans: 04/28/20 1212 [facility] [id number] Interpreted by: MEREDITH LAGUNA Electronically signed by: Reviewed: Reviewed by Me Departure Impression Primary Impression: Orthostatic syncope Additional Impressions: Dehydration Nausea & vomiting Qualified Codes: R11.2 - Nausea with vomiting, unspecified Disposition: 01 HOME, SELF-CARE Condition: Stable Departure-Patient Inst. Decision time for Depature: 12:26 Referrals: [facility] (PCP) Primary Care Physician CONRADO SHER APRN (Family) Primary Care Physician Patient Instructions: Syncope (Fainting) (DC), Dehydration, Adult ED Add. Discharge Instructions: You passed out because you were dehydrated probably be from the nausea and vomiting. Zofran 1 tablet under the tongue every 6 hours as necessary for nausea. Follow-up in the next 1 to 2 weeks with your primary care provider to manage yo ur symptoms. Return to the ER if you have chest pain, shortness of air or other worrisome symptoms. Drink lots of fluids and resume your medications in the next couple days. Scripts Ondansetron (Ondansetron Odt) 4 Mg Tab.rapdis 4 MG PO Q6H PRN for NAUSEA/VOMITING, #15 TAB 0 Refills Prov: TRINIDAD PAYTON 04/28/20 TRINIDAD PAYTON Apr 28, 2020 10:59
[2020-04-28] MEDS ORDERED: LACTATED RINGERS 1,000 ML IV ONE ×2 (11:00→12:30)
[2020-04-28 11:11] LABS: BASOPHILS # (AUTO) 0.1 10^3/uL (0.0-0.1); BASOPHILS % (AUTO) 0 % (0-10); EOSINOPHILS # (AUTO) 0.1 10^3/uL (0.0-0.3); EOSINOPHILS % (AUTO) 1 % (0-10); HEMATOCRIT 41 % (35-52); LYMPHOCYTES # (AUTO) 2.3 10^3/uL (1.0-4.0); LYMPHOCYTES % (AUTO) 20 % (12-44); MEAN CORPUSCULAR HEMOGLOBIN 32 pg (25-34); MEAN CORPUSCULAR HGB CONC 37 g/dL (32-36); MEAN CORPUSCULAR VOLUME 88 fL (80-99); MEAN PLATELET VOLUME 9.9 fL (9.0-12.2); MONOCYTES # (AUTO) 0.7 10^3/uL (0.0-1.0); MONOCYTES % (AUTO) 6 % (0-12); NEUTROPHILS # (AUTO) 8.3 10^3/uL (1.8-7.8); NEUTROPHILS % (AUTO) 73 % (42-75); PLATELET COUNT 255 10^3/uL (130-400); WHITE BLOOD COUNT 11.5 10^3/uL (4.3-11.0)
[2020-04-28 11:15] VITALS: BP_SYST 137; BP_SYST 159; BP_SYST 175; BP_DIAS 85; BP_DIAS 93; BP_DIAS 97
[2020-04-28 11:20] LABS: ALBUMIN 4.7 GM/DL (3.2-4.5); CHLORIDE 100 MMOL/L (98-107); POTASSIUM 3.4 MMOL/L (3.6-5.0); SODIUM 137 MMOL/L (135-145)
[2020-04-28 11:21] LABS: CALCIUM 9.9 MG/DL (8.5-10.1)
[2020-04-28 11:22] LABS: GLUCOSE 129 MG/DL (70-105)
[2020-04-28 11:23] LABS: TOTAL PROTEIN 7.7 GM/DL (6.4-8.2)
[2020-04-28 11:24] LABS: CARBON DIOXIDE 24 MMOL/L (21-32)
[2020-04-28 11:26] LABS: ALKALINE PHOSPHATASE 74 U/L (40-136); CREATININE SERUM 1.19 MG/DL (0.60-1.30); GFR ESTIMATED 46
[2020-04-28 11:27] LABS: BUN/CREATININE RATIO 13
[2020-04-28 11:27] LABS: CLARITY,URINE CLEAR; COLOR,URINE YELLOW; GLUCOSE, URINE (UA) NEGATIVE (NEGATIVE); KETONES,URINE TRACE (NEGATIVE); LEUKOCYTE ESTERASE ,URINE 1+ (NEGATIVE); NITRITE,URINE NEGATIVE (NEGATIVE); PH,URINE 5.5 (5-9); PROTEIN,URINE TRACE (NEGATIVE)
[2020-04-28 11:29] LABS: ALANINE AMINOTRANSFERASE 24 U/L (0-55); ERYTHROCYTE SEDIMENTATION RATE 5 MM/HR (0-30)
[2020-04-28 11:40] LABS: AMORPHOUS SEDIMENT,UR FEW AMOR URATES /LPF; BACTERIA,URINE MODERATE /HPF; HYALINE CASTS, URINE 0-2 /LPF
[2020-04-28 11:44] LABS: BILIRUBIN,URINE NEGATIVE (NEGATIVE)
--- NOTE | 2020-04-28 12:13 | Diagnostic Imaging Report ---
PROCEDURE: CT head and CT cervical spine without contrast. TECHNIQUE: Multiple contiguous axial images were obtained through the brain and cervical spine without the use of intravenous contrast. Sagittal and coronal reformations through the cervical spine were then performed. Auto Exposure Controls were utilized during the CT exam to meet ALARA standards for radiation dose reduction. INDICATION: Syncope and head pain COMPARISON with exam 08/24/2013. Chronic encephalomalacia and old white matter infarcts in the right basal ganglia and adjacent to the frontal horn of the right lateral ventricle are stable. Some chronic cerebral cortical volume loss without terrence hydrocephalus. Chronic periventricular white matter small vessel disease showed no substantial interval progression. There is no hemorrhage and no acute extra-axial fluid collection. There are chronic intracranial atherosclerotic vascular calcifications. No mass or mass effect. The orbits, sinuses and calvarium are within normal limits. Findings of grade 1 anterolisthesis of C4 on C5 as a new finding. The facet relationships aside from degenerative hypertrophy were otherwise unremarkable. There is no paraspinal soft tissue swelling or hematoma. This is presumed to be progressive degenerative malalignment. There is pancervical spondylosis with disc space narrowing, endplate sclerosis, osteophytes, uncovertebral joint spurring and facet arthrosis showing progression throughout the cervical spine. Disc space narrowing most severe at C5-C6. There is a substantial burden of cervical carotid atherosclerotic vascular calcifications. The central skull base appeared intact. There was no cervical fracture or dislocation. IMPRESSION: CT HEAD: 1. Stable chronic findings. No hemorrhage, fracture, edema or acute finding. CT CERVICAL SPINE: 1. Progressive degenerative changes are believed to account for new grade 1 anterolisthesis of C4 on 5 with no cervical fracture or facet joint dislocation. 2. Cervical carotid atherosclerotic vascular calcifications. Dictated by: Dictated on workstation # [id number]
[2020-04-28] MEDS ORDERED: ONDA4TAB11 PO (12:28)
[2020-04-28] MEDS ORDERED: KETOROLAC 30 MG/ML VIAL IVP ONE (12:30)
[2020-04-28 15:39] VITALS: BP 203/104
== END 2020-04-28 15:39 | disposition home or self-care (01) ==
LOC: ER 10:37
DX: S01.21XA Laceration without foreign body of nose, initial encounter (principal); I95.1 Orthostatic hypotension; E86.0 Dehydration; R11.2 Nausea with vomiting, unspecified; Z87.891 Personal history of nicotine dependence; I10 Essential (primary) hypertension; K21.9 Gastro-esophageal reflux disease without esophagitis; E11.9 Type 2 diabetes mellitus without complications; F32.9 Major depressive disorder, single episode, unspecified; F41.9 Anxiety disorder, unspecified; E78.00 Pure hypercholesterolemia, unspecified; Z86.73 Personal history of transient ischemic attack (TIA), and cerebral infarction without residual deficits; Z85.3 Personal history of malignant neoplasm of breast; Z79.84 Long term (current) use of oral hypoglycemic drugs; W22.8XXA Striking against or struck by other objects, initial encounter
CPT/HCPCS: 70450; 72125; 80053; 81000; 83880; 84484; 85025; 85652; 86141; 87088; 93005; 99283; G0480; 36415; 80320

== ENCOUNTER 2020-08-05 14:20 | Emergency (ER) | payer MEDICARE ==
[~2020-08-05] VITALS: Ht 157 cm; Wt 56.0 kg
[~2020-08-05 14:20] MED LIST changes: +ONDA4TAB11 PO
--- NOTE | 2020-08-05 14:24 | ED Cough/URI ---
General Stated Complaint: N/V Source: patient, EMS Exam Limitations: no limitations History of Present Illness Date Seen by Provider: August 05, 2020 Time Seen by Provider: 14:24 Initial Comments To ER by EMS from the [facility] where she is staying with reports of nausea vomiting diarrhea and abdominal cramping that began today. No fevers or chills. She has a history of hypokalemia and believes that she may be low on potassium again given the leg cramps. Timing/Duration: constant Severity/Quality: moderate Allergies and Home Medications Allergies Coded Allergies: venom-honey bee (Unverified Allergy, Unknown, 07/14/18) Home Medications Atorvastatin Calcium 20 Mg Tablet, 20 MG PO HS, (Reported) Carvedilol 12.5 Mg Tablet, 12.5 MG PO BID, (Reported) Citalopram Hydrobromide 10 Mg Tablet, 10 MG PO DAILY, (Reported) Cyclobenzaprine HCl 10 Mg Tablet, 10 MG PO TID PRN for MUSCLE SPASMS, (Reported) Glipizide 10 Mg Tablet, 10 MG PO BID, (Reported) Lisinopril 10 Mg Tablet, 10 MG PO DAILY Prescribed by: MARTHA TAPIA on 11/13/182047 Lisinopril/Hydrochlorothiazide 1 Each Tablet, 1 EACH PO DAILY, (Reported) Melatonin 10 Mg Tablet, 10 MG PO HS, (Reported) Metformin HCl 1,000 Mg Tablet, 1,000 MG PO BID, (Reported) Ondansetron 4 Mg Tab.rapdis, 4 MG PO Q6H PRN for NAUSEA/VOMITING Prescribed by: TRINIDAD PAYTON on 04/28/20 1228 Ondansetron 8 Mg Tab.rapdis, 8 MG PO Q6H Prescribed by: MARTHA TAPIA on 08/05/20 1613 Pantoprazole Sodium 40 Mg Tablet.dr, 40 MG PO DAILY, (Reported) Trazodone HCl 150 Mg Tablet, 150 MG PO HS, (Reported) Varenicline Tartrate 1 Mg Tablet, 1 MG PO BID, (Reported) Patient Home Medication List Home Medication List Reviewed: Yes Review of Systems Review of Systems Constitutional: see HPI EENTM: see HPI Respiratory: no symptoms reported Cardiovascular: no symptoms reported Genitourinary: no symptoms reported Musculoskeletal: muscle pain Skin: no symptoms reported Psychiatric/Neurological: No Symptoms Reported Past Hozofmu-Zploor-Tfbmgn Hx Patient Social History Type Used: Cigarettes Former Smoker, Quit: Nov 06, 2018 2nd Hand Smoke Exposure: Yes Recent Hopitalizations: No Immunizations Up To Date Date of Pneumonia Vaccine: Dec 23, 2017 Date of Influenza Vaccine: Dec 23, 2017 Seasonal Allergies Seasonal Allergies: Yes Past Medical History Surgeries: Yes (BACK, R SHOULDER, R WRIST, R KNEE, BILAT MASTECTOMY W/IMPLANTS) Adenoidectomy, Appendectomy, Gallbladder, Hysterectomy, Oophorectomy, Tonsillectomy Respiratory: No Cardiac: Yes (ANGIOPLASTY) High Cholesterol, Hypertension Neurological: Yes Stroke Sexually Transmitted Disease: No HIV/AIDS: No Genitourinary: No Gastrointestinal: Yes Gastroesophageal Reflux Musculoskeletal: Yes Arthritis Endocrine: Yes Diabetes, Non-Insulin dep HEENT: Yes (GLASSES, DENTURES) Cataract Loss of Vision: Bilateral Hearing Impairment: Denies Cancer: Yes Breast Did You Recieve Any Treatments: Yes What Type of Treatment Did You: Surgical Intervention Psychosocial: Yes Anxiety, Depression Integumentary: No Blood Disorders: No Adverse Reaction/Blood Tranf: No (N/A) Physical Exam Vital Signs - First Documented 08/05/20 14:20 Temp 36.5 Pulse 80 Resp 20 B/P (MAP) 92/74 (80) Pulse Ox 98 O2 Delivery Room Air Capillary Refill : Height: 5'2.00" Weight: 125lbs. 6.0oz. [id number]; 24.00 BMI Method:Stated General Appearance: WD/WN, no apparent distress Eyes: Bilateral Eye Normal Inspection, Bilateral Eye PERRL, Bilateral Eye EOMI Neck: non-tender, full range of motion Respiratory: normal breath sounds, no respiratory distress, no accessory muscle use Gastrointestinal: normal bowel sounds, non tender Neurologic/Psychiatric: alert, normal mood/affect, oriented x 3 Skin: normal color, warm/dry Progress/Results/Core Measures Suspected Sepsis SIRS Temperature: Pulse: Respiratory Rate: Laboratory Tests 08/05/20 14:25: White Blood Count 14.3H Blood Pressure / Mean: Laboratory Tests 08/05/20 14:25: Creatinine 2.23H, Platelet Count 346, Total Bilirubin 1.4H Results/Orders Lab Results Laboratory Tests Test 08/05/20 14:25 Range/Units White Blood Count 14.3 H 4.3-11.0 10^3/uL Red Blood Count 5.00 3.80-5.11 10^6/uL Hemoglobin 15.9 11.5-16.0 g/dL Hematocrit 46 35-52 % Mean Corpuscular Volume 92 80-99 fL Mean Corpuscular Hemoglobin 32 25-34 pg Mean Corpuscular Hemoglobin Concent 35 32-36 g/dL Red Cell Distribution Width 12.1 10.0-14.5 % Platelet Count 346 130-400 10^3/uL Mean Platelet Volume 9.9 9.0-12.2 fL Immature Granulocyte % (Auto) 0 % Neutrophils (%) (Auto) 76 H 42-75 % Lymphocytes (%) (Auto) 17 12-44 % Monocytes (%) (Auto) 7 0-12 % Eosinophils (%) (Auto) 0 0-10 % Basophils (%) (Auto) 1 0-10 % Neutrophils # (Auto) 10.8 H 1.8-7.8 X 10^3 Lymphocytes # (Auto) 2.4 1.0-4.0 X 10^3 Monocytes # (Auto) 0.9 0.0-1.0 X 10^3 Eosinophils # (Auto) 0.1 0.0-0.3 10^3/uL Basophils # (Auto) 0.1 0.0-0.1 10^3/uL Immature Granulocyte # (Auto) 0.0 0.0-0.1 10^3/uL Neutrophils % (Manual) 66 % Lymphocytes % (Manual) 24 % Monocytes % (Manual) 8 % Basophils % (Manual) 1 % Band Neutrophils 1 % Blood Morphology Comment NORMAL Sodium Level 139 135-145 MMOL/L Potassium Level 3.8 3.6-5.0 MMOL/L Chloride Level 96 L 98-107 MMOL/L Carbon Dioxide Level 27 21-32 MMOL/L Anion Gap 16 H 5-14 MMOL/L Blood Urea Nitrogen 23 H 7-18 MG/DL Creatinine 2.23 H 0.60-1.30 MG/DL Estimat Glomerular Filtration Rate 22 BUN/Creatinine Ratio 10 Glucose Level 147 H 70-105 MG/DL Calcium Level 10.6 H 8.5-10.1 MG/DL Corrected Calcium 8.5-10.1 MG/DL Total Bilirubin 1.4 H 0.1-1.0 MG/DL Aspartate Amino Transf (AST/SGOT) 26 5-34 U/L Alanine Aminotransferase (ALT/SGPT) 29 0-55 U/L Alkaline Phosphatase 75 40-136 U/L Total Protein 8.0 6.4-8.2 GM/DL Albumin 4.9 H 3.2-4.5 GM/DL My Orders Orders - MARTHA TAPIA APRN Cbc With Automated Diff (08/05/20 14:22) Comprehensive Metabolic Panel (08/05/20 14:22) Ed Iv/Invasive Line Start (08/05/20 14:22) Orphenadrine Inj (Ed Only) (Norflex Inje (08/05/20 14:30) Lactated Ringers (Lr 1000 Ml Iv Solution (08/05/20 14:45) Manual Differential (08/05/20 14:25) Ct Abdomen/Pelvis Wo (08/05/20 15:07) Medications Given in ED Current Medications Medications Dose Ordered Sig/Jennifer Route Start Time Stop Time Status Last Admin Dose Admin Orphenadrine Citrate 60 mg ONCE ONCE IV 08/05/20 14:30 08/05/20 14:31 DC 08/05/20 14:30 60 MG Vital Signs/I&O 08/05/20 14:20 Temp 36.5 Pulse 80 Resp 20 B/P (MAP) 92/74 (80) Pulse Ox 98 O2 Delivery Room Air Capillary Refill : Departure Impression Primary Impression: Dehydration Additional Impression: Nausea & vomiting Disposition: 01 HOME, SELF-CARE Condition: Improved Departure-Patient Inst. Decision time for Depature: 16:13 Referrals: [facility] (PCP) Primary Care Physician CONRADO SHER APRN (Family) Primary Care Physician Patient Instructions: Nausea and Vomiting, Adult Add. Discharge Instructions: Drink Plenty of fluids. Nausea medication as needed. Return to ER for any concerns. Scripts Ondansetron (Ondansetron Odt) 8 Mg Tab.rapdis 8 MG PO Q6H, #14 TAB Prov: MARTAH TAPIA APRN 08/05/20 MARTHA TAPIA APRN August 05, 2020 14:24
[2020-08-05] MEDS ORDERED: ORPHENADRINE 60 MG/2 ML (NORFLEX) AMP (ED ONLY) IV ONE (14:30)
[2020-08-05 14:38] LABS: BASOPHILS # (AUTO) 0.1 10^3/uL (0.0-0.1); BASOPHILS % (AUTO) 1 % (0-10); EOSINOPHILS # (AUTO) 0.1 10^3/uL (0.0-0.3); EOSINOPHILS % (AUTO) 0 % (0-10); HEMATOCRIT 46 % (35-52); HEMOGLOBIN 15.9 g/dL (11.5-16.0); LYMPHOCYTES # (AUTO) 2.4 X 10^3 (1.0-4.0); LYMPHOCYTES % (AUTO) 17 % (12-44); MEAN CORPUSCULAR HEMOGLOBIN 32 pg (25-34); MEAN CORPUSCULAR HGB CONC 35 g/dL (32-36); MEAN CORPUSCULAR VOLUME 92 fL (80-99); MEAN PLATELET VOLUME 9.9 fL (9.0-12.2); MONOCYTES # (AUTO) 0.9 X 10^3 (0.0-1.0); MONOCYTES % (AUTO) 7 % (0-12); NEUTROPHILS # (AUTO) 10.8 X 10^3 (1.8-7.8); NEUTROPHILS % (AUTO) 76 % (42-75); PLATELET COUNT 346 10^3/uL (130-400); WHITE BLOOD COUNT 14.3 10^3/uL (4.3-11.0)
[2020-08-05] MEDS ORDERED: LACTATED RINGERS 1,000 ML IV SCH (14:45)
[2020-08-05 14:46] LABS: ALBUMIN 4.9 GM/DL (3.2-4.5); CHLORIDE 96 MMOL/L (98-107); POTASSIUM 3.8 MMOL/L (3.6-5.0); SODIUM 139 MMOL/L (135-145)
[2020-08-05 14:47] LABS: CALCIUM 10.6 MG/DL (8.5-10.1)
[2020-08-05 14:48] LABS: GLUCOSE 147 MG/DL (70-105)
[2020-08-05 14:50] LABS: BILIRUBIN,TOTAL 1.4 MG/DL (0.1-1.0); CARBON DIOXIDE 27 MMOL/L (21-32)
[2020-08-05 14:52] LABS: ALKALINE PHOSPHATASE 75 U/L (40-136); CREATININE SERUM 2.23 MG/DL (0.60-1.30); GFR ESTIMATED 22
[2020-08-05 14:53] LABS: BUN/CREATININE RATIO 10
[2020-08-05 14:55] LABS: ALANINE AMINOTRANSFERASE 29 U/L (0-55)
[2020-08-05 14:58] LABS: BAND NEUTROPHILS 1 %; BASOPHILS % (MANUAL) 1 %; LYMPHOCYTES % (MANUAL) 24 %; MONOCYTES % (MANUAL) 8 %; NEUTROPHILS % (MANUAL) 66 %; RBC MORPH NORMAL
--- NOTE | 2020-08-05 15:53 | Diagnostic Imaging Report ---
PROCEDURE: CT abdomen and pelvis without contrast. TECHNIQUE: Multiple contiguous axial images were obtained through the abdomen and pelvis without the use of intravenous contrast. Auto Exposure Controls were utilized during the CT exam to meet ALARA standards for radiation dose reduction. INDICATION: Abdominal pain and vomiting. No prior studies are available for comparison. The lung bases are clear. The liver is unremarkable. The gallbladder is surgically absent. No biliary ductal dilatation is seen. Pancreas and spleen are unremarkable. No adrenal mass is detected. Both kidneys contain vascular calcifications. No definite nephrolithiasis is seen. No ureteral or bladder calculi or evidence of hydronephrosis is identified. Aorta and iliac vessels are heavily calcified but nonaneurysmal. The small and large bowel loops are normal caliber. There is no obstruction. No free fluid or fluid collection is identified. No inflammatory changes are seen. IMPRESSION: Essentially unremarkable noncontrast CT of the abdomen and pelvis. No acute abnormality is detected. Dictated by: Dictated on workstation # [id number]
[2020-08-05] MEDS ORDERED: ONDA8TAB13 PO (16:13)
[2020-08-05 16:20] VITALS: BP 108/49
== END 2020-08-05 16:20 | disposition home or self-care (01) ==
LOC: EDUNIT# 14:20 → ER 14:21
DX: E86.0 Dehydration (principal); I10 Essential (primary) hypertension; E11.9 Type 2 diabetes mellitus without complications; E78.00 Pure hypercholesterolemia, unspecified; K21.9 Gastro-esophageal reflux disease without esophagitis; F41.9 Anxiety disorder, unspecified; F32.9 Major depressive disorder, single episode, unspecified; Z87.891 Personal history of nicotine dependence; Z77.22 Contact with and (suspected) exposure to environmental tobacco smoke (acute) (chronic); Z79.84 Long term (current) use of oral hypoglycemic drugs; Z79.899 Other long term (current) drug therapy
CPT/HCPCS: 36415; 74176; 80053; 85007; 85027

== ENCOUNTER 2021-04-01 02:52 | Inpatient (IN) | payer MEDICARE ==
[~2021-04-01] VITALS: Ht 157.5 cm; Wt 57.8 kg
[~2021-04-01 02:52] MED LIST changes: -CITA10TA7 PO; +CITA10TA9 PO; +CYCL10TA25 PO; -CYCL10TA9 PO; -LISI1TAB26 PO; +LISI1TAB48 PO; +ONDA8TAB13 PO
[2021-04-01] MEDS ORDERED: NS IV 1000 ML 1,000 ML IV SCH (03:00)
[2021-04-01 03:05] LABS: BASOPHILS # (AUTO) 0.1 10^3/uL (0.0-0.1); BASOPHILS % (AUTO) 1 % (0-10); EOSINOPHILS # (AUTO) 0.3 10^3/uL (0.0-0.3); EOSINOPHILS % (AUTO) 2 % (0-10); HEMATOCRIT 41 % (35-52); HEMOGLOBIN 14.7 g/dL (11.5-16.0); LYMPHOCYTES # (AUTO) 6.1 10^3/uL (1.0-4.0); LYMPHOCYTES % (AUTO) 44 % (12-44); MEAN CORPUSCULAR HEMOGLOBIN 33 pg (25-34); MEAN CORPUSCULAR HGB CONC 36 g/dL (32-36); MEAN CORPUSCULAR VOLUME 91 fL (80-99); MEAN PLATELET VOLUME 10.4 fL (9.0-12.2); MONOCYTES # (AUTO) 1.2 10^3/uL (0.0-1.0); MONOCYTES % (AUTO) 9 % (0-12); NEUTROPHILS # (AUTO) 6.1 10^3/uL (1.8-7.8); NEUTROPHILS % (AUTO) 44 % (42-75); PLATELET COUNT 295 10^3/uL (130-400); WHITE BLOOD COUNT 13.8 10^3/uL (4.3-11.0)
[2021-04-01 03:15] LABS: ALBUMIN 4.3 GM/DL (3.2-4.5); POTASSIUM 2.7 MMOL/L (3.6-5.0); PROTHROMBIN TIME PATIENT 13.9 SEC (12.2-14.7)
[2021-04-01 03:16] LABS: CALCIUM 9.4 MG/DL (8.5-10.1)
[2021-04-01 03:17] LABS: TOTAL PROTEIN 7.1 GM/DL (6.4-8.2)
--- NOTE | 2021-04-01 03:18 | ED Chest Pain ---
General Chief Complaint: Cardiac/General Problems Stated Complaint: STEMI Source: patient (SOMEWHAT DIFFICULT HISTORIAN), EMS, old records History of Present Illness Date Seen by Provider: Apr 01, 2021 Time Seen by Provider: 02:54 Initial Comments PT ARRIVES VIA EMS FROM HOME. PT LIVES ALONE STATES SHE BEGAN HAVING CHEST PAIN AROUND 1500 THIS AFTERNOON, WHILE WALKING HER DOG. GRADUALLY WENT AWAY, AFTER AN UNKNOWN AMOUNT OF TIME STATES AROUND 0100, SHE WAS TRYING TO GO TO BED AND HER PAIN CAME BACK--PT WAS SITTING AT THE TIME PAIN IS IN MID CHEST AND RADIATES DOWN LEFT ARM AND INTO LEFT JAW RATES PAIN 10/10 AT WORST C/O NAUSEA, NO VOMITING HAS HAD SOME INTERMITTENT DIZZINESS, BUT NO SYNCOPE NO SHORTNESS OF BREATH NO SWEATS NO PALPITATIONS NO SWELLING IN LEGS/ FEET NO HISTORY OF SIMILAR PT DESCRIBES PRIOR CARDIAC CATH BY DR. PORTILLO, BUT DENIES ANY STENTS. ( UNABLE TO FIND PRIOR RECORD OF CARDIAC CATH AT THIS TIME) PT HAD A NORMAL STRESS TEST HERE BY DR. PORTILLO 11/2019. PT HAS HTN AND DIABETES. PT HAS NOT CHECKED HER BLOOD SUGAR AT HOME STATES SHE HAS BEEN OUT OF HER BLOOD PRESSURE MEDICATIONS FOR THE LAST COUPLE OF DAYS EMS GAVE 324 MG ASPIRIN AND FENTANYL 100 MCG STATES PAIN DOWN TO 7/10 ON ARRIVAL, AND THEN A SHORT WHILE LATER STATES PAIN IS NOW A 2/10 PT HAS NOT HAD COVID-19 VACCINE PT DENIES RECENT ILLNESS OR ANY COVID-19 SYMPTOMS PCP: TESFAYE. DR. Balwinder VALENTE REVIEW RN: DR. PORTILLO--HAS NOT SEEN HIM IN OVER A YEAR. Allergies and Home Medications Allergies Coded Allergies: venom-honey bee (Unverified Allergy, Unknown, 07/14/18) Patient Home Medication List Home Medication List Reviewed: Yes Atorvastatin Calcium (Atorvastatin Calcium) 20 Mg Tablet, 20 MG PO HS, (Reported) Entered as Reported by: FAISAL DUBON on 07/14/18 1014 Carvedilol (Carvedilol) 12.5 Mg Tablet, 12.5 MG PO BID, (Reported) Entered as Reported by: FAISAL DUBON on 07/14/18 1014 Citalopram Hydrobromide (Citalopram HBr) 10 Mg Tablet, 10 MG PO DAILY, (Reported) Entered as Reported by: FAISAL DUBON on 07/14/18 1014 Cyclobenzaprine HCl (Cyclobenzaprine HCl) 10 Mg Tablet, 10 MG PO TID PRN for MUSCLE SPASMS, (Reported) Entered as Reported by: FAISAL DUBON on 07/14/18 1014 Glipizide (Glipizide) 10 Mg Tablet, 10 MG PO BID, (Reported) Entered as Reported by: FAISAL DUBON on 07/14/18 1014 Lisinopril (Lisinopril) 10 Mg Tablet, 10 MG PO DAILY Prescribed by: MARTHA TAPIA on 11/13/18 2048 Lisinopril/Hydrochlorothiazide (Lisinopril-Hctz 20-25 mg Tab) 1 Each Tablet, 1 EACH PO DAILY, (Reported) Entered as Reported by: FAISAL DUBON on 07/14/18 1014 Melatonin (Melatonin) 10 Mg Tablet, 10 MG PO HS, (Reported) Entered as Reported by: CHAS SARGENT on 07/18/18 1053 Metformin HCl (Metformin HCl) 1,000 Mg Tablet, 1,000 MG PO BID, (Reported) Entered as Reported by: FAISAL DUBON on 07/14/18 1014 Ondansetron (Ondansetron Odt) 4 Mg Tab.rapdis, 4 MG PO Q6H PRN for NAUSEA/VOMITING Prescribed by: TRINIDAD PAYTON on 04/28/20 1228 Ondansetron (Ondansetron Odt) 8 Mg Tab.rapdis, 8 MG PO Q6H Prescribed by: MARTHA TAPIA on 08/05/20 1613 Pantoprazole Sodium (Pantoprazole Sodium) 40 Mg Tablet.dr, 40 MG PO DAILY, (Reported) Entered as Reported by: FAISAL DUBON on 07/14/18 1014 Trazodone HCl (Trazodone HCl) 150 Mg Tablet, 150 MG PO HS, (Reported) Entered as Reported by: FAISAL DUBON on 07/14/18 1014 Varenicline Tartrate (Chantix) 1 Mg Tablet, 1 MG PO BID, (Reported) Entered as Reported by: FAISAL DUBON on 07/14/18 1014 Review of Systems Review of Systems Constitutional: see HPI, dizziness EENTM: Other (LEFT JAW PAIN) Respiratory: No Symptoms Reported Cardiovascular: See HPI, Chest Pain; Denies Edema; Lightheadedness; Denies Palpitations, Denies Syncope Gastrointestinal: See HPI, Nausea; Denies Vomiting Genitourinary: No Symptoms Reported Musculoskeletal: see HPI (LEFT ARM PAIN) Past Jjtgmgq-Fqtuly-Exyokf Hx Patient Social History Tobacco Use?: Yes Tobacco type used: Cigarettes Substance use?: No Alcohol Use?: Yes Seasonal Allergies Seasonal Allergies: Yes Past Medical History Surgeries: Yes (BACK, R SHOULDER, R WRIST, R KNEE, BILAT MASTECTOMY W/IMPLANTS) Adenoidectomy, Appendectomy, Gallbladder, Hysterectomy, Oophorectomy, Tonsillectomy Respiratory: No Cardiac: Yes (ANGIOPLASTY) High Cholesterol, Hypertension Neurological: Yes Stroke Sexually Transmitted Disease: No HIV/AIDS: No Genitourinary: No Gastrointestinal: Yes Gastroesophageal Reflux Musculoskeletal: Yes Arthritis Endocrine: Yes Diabetes, Non-Insulin dep HEENT: Yes (GLASSES, DENTURES) Cataract Loss of Vision: Bilateral Hearing Impairment: Denies Cancer: Yes Breast Did You Recieve Any Treatments: Yes What Type of Treatment Did You: Surgical Intervention Psychosocial: Yes Anxiety, Depression Integumentary: No Blood Disorders: No Adverse Reaction/Blood Tranf: No (N/A) Physical Exam Vital Signs Vital Signs - First Documented 04/01/21 04/01/21 02:54 03:00 Temp 36.2 Pulse 53 Resp 16 B/P (MAP) 122/60 (80) Pulse Ox 99 O2 Delivery Room Air O2 Flow Rate 2.00 Capillary Refill : Height, Weight, BMI Height: 5'2.00" Weight: 125lbs. 6.0oz. 56.216214wb; 22.00 BMI Method:Stated General Appearance: No Apparent Distress, WD/WN, Thin, Other (REEKS OF CIGARETTES) HEENT: PERRL/EOMI Neck: Normal Inspection; No JVD Respiratory: Chest Non Tender, Normal Breath Sounds, No Accessory Muscle Use, No Respiratory Distress Cardiovascular: Regular Rate, Rhythm, No Edema, No JVD, No Murmur, Normal Peripheral Pulses Gastrointestinal: Non Tender, Soft Neurologic/Psychiatric: Alert, Oriented x3, No Motor/Sensory Deficits, Normal Mood/Affect, sanding machine buffer II-XII Norm as Tested Progress/Results/Core Measures Results/Orders Lab Results Laboratory Tests Test 04/01/21 02:55 Range/Units White Blood Count 13.8 H 4.3-11.0 10^3/uL Red Blood Count 4.52 3.80-5.11 10^6/uL Hemoglobin 14.7 11.5-16.0 g/dL Hematocrit 41 35-52 % Mean Corpuscular Volume 91 80-99 fL Mean Corpuscular Hemoglobin 33 25-34 pg Mean Corpuscular Hemoglobin Concent 36 32-36 g/dL Red Cell Distribution Width 11.5 10.0-14.5 % Platelet Count 295 130-400 10^3/uL Mean Platelet Volume 10.4 9.0-12.2 fL Immature Granulocyte % (Auto) 0 % Neutrophils (%) (Auto) 44 42-75 % Lymphocytes (%) (Auto) 44 12-44 % Monocytes (%) (Auto) 9 0-12 % Eosinophils (%) (Auto) 2 0-10 % Basophils (%) (Auto) 1 0-10 % Neutrophils # (Auto) 6.1 1.8-7.8 10^3/uL Lymphocytes # (Auto) 6.1 H 1.0-4.0 10^3/uL Monocytes # (Auto) 1.2 H 0.0-1.0 10^3/uL Eosinophils # (Auto) 0.3 0.0-0.3 10^3/uL Basophils # (Auto) 0.1 0.0-0.1 10^3/uL Immature Granulocyte # (Auto) 0.1 0.0-0.1 10^3/uL Prothrombin Time 13.9 12.2-14.7 SEC INR Comment 1.0 0.8-1.4 Activated Partial Thromboplast Time 30 24-35 SEC Sodium Level 138 135-145 MMOL/L Potassium Level 2.7 L 3.6-5.0 MMOL/L Chloride Level 101 98-107 MMOL/L Carbon Dioxide Level 23 21-32 MMOL/L Anion Gap 14 5-14 MMOL/L Blood Urea Nitrogen 15 7-18 MG/DL Creatinine 1.18 0.60-1.30 MG/DL Estimat Glomerular Filtration Rate 51 BUN/Creatinine Ratio 13 Glucose Level 155 H 70-105 MG/DL Calcium Level 9.4 8.5-10.1 MG/DL Corrected Calcium 9.2 8.5-10.1 MG/DL Magnesium Level 2.1 1.6-2.4 MG/DL Total Bilirubin 0.4 0.1-1.0 MG/DL Aspartate Amino Transf (AST/SGOT) 15 5-34 U/L Alanine Aminotransferase (ALT/SGPT) 20 0-55 U/L Alkaline Phosphatase 58 40-136 U/L Total Creatine Kinase 77 29-168 U/L Creatine Kinase MB 3.2 <6.6 NG/ML Myoglobin 73.1 10.0-92.0 NG/ML Troponin I 0.116 H <0.028 NG/ML B-Type Natriuretic Peptide 43.2 <100.0 PG/ML Total Protein 7.1 6.4-8.2 GM/DL Albumin 4.3 3.2-4.5 GM/DL Amylase Level 48 25-125 U/L Lipase 40 8-78 U/L Serum Alcohol < 10 <10 MG/DL My Orders Orders - LOU CROOKS DO Chest 1 View, Ap/Pa Only (04/01/21 ) Cbc With Automated Diff (04/01/21 02:56) Magnesium (04/01/21 02:56) Ekg Tracing (04/01/21 02:56) Comprehensive Metabolic Panel (04/01/21 02:56) Myoglobin Serum (04/01/21 02:56) Protime With Inr (04/01/21 02:56) Partial Thromboplastin Time (04/01/21 02:56) O2 (04/01/21 02:56) Monitor-Rhythm Ecg Trace Only (04/01/21 02:56) Ed Iv/Invasive Line Start (04/01/21 02:56) Creatine Kinase (04/01/21 02:56) Creatine Kinase Mb (04/01/21 02:56) Lipase (04/01/21 02:56) Amylase (04/01/21 02:56) Bnp Yovana (04/01/21 02:56) Troponin I Yovana (04/01/21 02:56) Ed Iv/Invasive Line Start (04/01/21 02:56) Ns Iv 1000 Ml (Sodium Chloride 0.9%) (04/01/21 03:00) Vital Signs/I&O 04/01/21 04/01/21 02:54 03:00 Temp 36.2 Pulse 53 Resp 16 B/P (MAP) 122/60 (80) Pulse Ox 99 O2 Delivery Room Air Nasal Cannula O2 Flow Rate 2.00 Progress Progress Note : Progress Note NO DETERIORATION IN PT'S CONDITION DURING ER STAY Initial ECG Impression Date: Apr 01, 2021 Initial ECG Impression Time: 02:59 Initial ECG Rate: 55 Initial ECG Impression: Acute [place] (INFERIOR) Diagnostic Imaging Comments CXR--NO ACUTE PROCESS, PENDING RADIOLOGIST REVIEW Reviewed: Reviewed by Me Departure Communication (Admissions) [id number]--PAGED/SPOKE WITH DR. DIETZ, ADVISES TO CALL IN [facility]. MANAGER UTILIZATION INFORMED. Impression Primary Impression: Acute ST elevation myocardial infarction (STEMI) of inferior wall Additional Impressions: NIDDM HTN (hypertension) Smoker Disposition: ADMITTED INPATIENT (TO [facility]) Condition: Stable Admissions Decision to Admit Reason: Admit from ER (General) (TO [facility]) Decision to Admit/Date: Apr 01, 2021 Time/Decision to Admit Time: 03:00 Departure-Patient Inst. Referrals: [facility] (PCP) Primary Care Physician CONRADO SHER APRN (Family) Primary Care Physician LOU CROOKS DO Apr 01, 2021 03:18
[2021-04-01 03:19] LABS: BILIRUBIN,TOTAL 0.4 MG/DL (0.1-1.0)
[2021-04-01 03:21] LABS: CREATININE SERUM 1.18 MG/DL (0.60-1.30)
[2021-04-01 03:23] LABS: MAGNESIUM 2.1 MG/DL (1.6-2.4)
[2021-04-01] MEDS ORDERED: HEParin (CATH LAB) 2,000 ML IV ONE (03:28)
[2021-04-01] MEDS ORDERED: EPTIFIBATIDE BOLUS 20 ML IV ONE (03:28)
[2021-04-01] MEDS ORDERED: MIDAZOLAM 5 MG/5 ML (VERSED) VIAL ONE (03:28)
[2021-04-01] MEDS ORDERED: LIDOCAINE 1% INJ 20 ML VIAL ONE (03:28)
[2021-04-01] MEDS ORDERED: NS IV 1000 ML 1,000 ML ONE (03:28)
[2021-04-01] MEDS ORDERED: HEParin 1000 UNIT/ML (10ML VIAL) FOR BOLUS ONE (03:28)
[2021-04-01] MEDS ORDERED: fentaNYL INJ 100 MCG/2 ML AMP ONE (03:28)
[2021-04-01] MEDS ORDERED: NITRO DRIP 25000 MCG/D5W 0 ML IV ONE (03:29)
[2021-04-01 03:31] LABS: CREATINE KINASE MB 3.2 NG/ML (<6.6)
[2021-04-01 03:35] VITALS: BP 154/101
[2021-04-01] MEDS ORDERED: ATROPINE INJECTION 1 MG/10 ML SYR (ABBOTT) ONE ×2 (03:47→05:22)
[2021-04-01] MEDS ORDERED: CLOPIDOGREL 300 MG (PLAVIX) TABLET PO ONE (04:26)
[2021-04-01] MEDS ORDERED: PATIENT MAY USE OWN MEDS, ALL PO SCH (04:30)
--- NOTE | 2021-04-01 04:43 | Cardiology History & Physical ---
HPI-Cardiology Cardiology H&P Date of Admission 04/01/21 [facility] Attending Physician Luis Mcgee MD, MA FACP [facility] CCDS Consulting Physician SH[facility] CC: Chest pain HPI 65 yo woman who had chest pain while walking her do in the evening of 03/31/21, resolved with rest, then recurred at approx 1 am on 04/01/21 with more intensity. Pain mid sternal, severe, radiating to L arm, associated with nausea, not experienced before. Chronic, slowly progressive, exertional shortness of breath. No swelling. No palp or syncope Review of Systems-Cardiology Review of Systems Constitutional: malaise; No weight loss, No weight gain Eyes: No vision change Ears/Nose/Throat: No ear discharge, No nasal drainage, No recent hearing loss Respiratory: As described under HPI Cardiovascular: As described under HPI Gastrointestinal: As described under HPI Genitourinary: No dysuria, No hematuria, No urine frequency changes Musculoskeletal: back pain (chronic) Skin: No rash, No ulcerations Psychiatric/Neurological: No seizure, No focal weakness, No syncope Hematologic: No bleeding abnormalities VXO-Fyzhwa-Sxisgw Hx Patient Social History Smoking Status: Current Everyday Smoker 2nd Hand Smoke Exposure: Yes Alcohol Use?: Yes Substance type: Marijuana Immunizations Up To Date Date of Pneumonia Vaccine: Dec 23, 2017 Date of Influenza Vaccine: Dec 23, 2017 Past Medical History PMH As described under Assessment. Family Medical History Family Medical History: Does not report fam h/o early CAD or SCD Allergies and Home Medications Allergies Coded Allergies: venom-honey bee (Unverified Allergy, Unknown, 07/14/18) Patient Home Medication List Home Medication List Reviewed: Yes Atorvastatin Calcium (Atorvastatin Calcium) 20 Mg Tablet, 20 MG PO HS, (Reported) Entered as Reported by: FAISAL DUBON on 07/14/18 1014 Carvedilol (Carvedilol) 12.5 Mg Tablet, 12.5 MG PO BID, (Reported) Entered as Reported by: FAISAL DUBON on 07/14/18 1014 Citalopram Hydrobromide (Citalopram HBr) 10 Mg Tablet, 10 MG PO DAILY, (Reported) Entered as Reported by: FAISAL DUBON on 07/14/18 1014 Cyclobenzaprine HCl (Cyclobenzaprine HCl) 10 Mg Tablet, 10 MG PO TID PRN for MUSCLE SPASMS, (Reported) Entered as Reported by: FAISAL DUBON on 07/14/18 1014 Glipizide (Glipizide) 10 Mg Tablet, 10 MG PO BID, (Reported) Entered as Reported by: FAISAL DUBON on 07/14/18 1014 Lisinopril (Lisinopril) 10 Mg Tablet, 10 MG PO DAILY Prescribed by: MARTHA TAPIA on 11/13/18 2048 Lisinopril/Hydrochlorothiazide (Lisinopril-Hctz 20-25 mg Tab) 1 Each Tablet, 1 EACH PO DAILY, (Reported) Entered as Reported by: FAISAL DUBON on 07/14/18 101 Melatonin (Melatonin) 10 Mg Tablet, 10 MG PO HS, (Reported) Entered as Reported by: CHAS SARGENT on 07/18/18 1053 Metformin HCl (Metformin HCl) 1,000 Mg Tablet, 1,000 MG PO BID, (Reported) Entered as Reported by: FAISAL DUBON on 07/14/18 1014 Ondansetron (Ondansetron Odt) 4 Mg Tab.rapdis, 4 MG PO Q6H PRN for NAUSEA/VOMITING Prescribed by: TRINIDAD PAYTON on 04/28/20 1228 Ondansetron (Ondansetron Odt) 8 Mg Tab.rapdis, 8 MG PO Q6H Prescribed by: MARTHA TAPIA on 08/05/20 1613 Pantoprazole Sodium (Pantoprazole Sodium) 40 Mg Tablet.dr, 40 MG PO DAILY, (Reported) Entered as Reported by: FAISAL DUBON on 07/14/18 1014 Trazodone HCl (Trazodone HCl) 150 Mg Tablet, 150 MG PO HS, (Reported) Entered as Reported by: FAISAL DUBON on 07/14/18 1014 Varenicline Tartrate (Chantix) 1 Mg Tablet, 1 MG PO BID, (Reported) Entered as Reported by: FAISAL DUBON on 07/14/18 1014 Physical Exam-Cardiology Physical Exam Vital Signs/I&O 1/15/22 1/15/22 1/15/22 02:54 03:00 03:35 Temp 36.2 36.2 Pulse 53 106 Resp 16 18 B/P (MAP) 122/60 (80) 154/101 Pulse Ox 99 100 O2 Delivery Room Air Nasal Cannula Nasal Cannula O2 Flow Rate 2.00 2.00 Capillary Refill : Less Than 3 Seconds Constitutional: AAO x 3, well-developed, well-nourished HEENT: PERRL, EOMI, hearing is well preserved Neck: non-tender, carotid pulses are 2 + bilaterally Respiratory: No accessory muscle use; other (fair air entry, prolong exp) Cardiovascular: regular rate-rhythm, S1 and S2, systolic murmur (soft SAUL at the card base) Gastrointestinal: No tender; soft; No guarding, No rebound; audible bowel sounds Extremities: No clubbing, No cyanosis, No significant edema Neurologic/Psychiatric: oriented x 3, other (moves all limbs equally) Skin: warm/dry; No rash on exposed areas, No ulcerations on exposed areas Data Review Labs Laboratory Tests 04/01/21 02:55: White Blood Count 13.8H, Red Blood Count 4.52, Hemoglobin 14.7, Hematocrit 41, Mean Corpuscular Volume 91, Mean Corpuscular Hemoglobin 33, Mean Corpuscular Hemoglobin Concent 36, Red Cell Distribution Width 11.5, Platelet Count 295, Mean Platelet Volume 10.4, Immature Granulocyte % (Auto) 0, Neutrophils (%) (Auto) 44, Lymphocytes (%) (Auto) 44, Monocytes (%) (Auto) 9, Eosinophils (%) (Auto) 2, Basophils (%) (Auto) 1, Neutrophils # (Auto) 6.1, Lymphocytes # (Auto) 6.1H, Monocytes # (Auto) 1.2H, Eosinophils # (Auto) 0.3, Basophils # (Auto) 0.1, Immature Granulocyte # (Auto) 0.1, Prothrombin Time 13.9, INR Comment 1.0, Activated Partial Thromboplast Time 30, Sodium Level 138, Potassium Level 2.7L, Chloride Level 101, Carbon Dioxide Level 23, Anion Gap 14, Blood Urea Nitrogen 15, Creatinine 1.18, Estimat Glomerular Filtration Rate 51, BUN/Creatinine Ratio 13, Glucose Level 155H, Calcium Level 9.4, Corrected Calcium 9.2, Magnesium Level 2.1, Total Bilirubin 0.4, Aspartate Amino Transf (AST/SGOT) 15, Alanine Aminotransferase (ALT/SGPT) 20, Alkaline Phosphatase 58, Total Creatine Kinase 77, Creatine Kinase MB 3.2, Myoglobin 73.1, Troponin I 0.116H, B-Type Natriuretic Peptide 43.2, Total Protein 7.1, Albumin 4.3, Amylase Level 48, Lipase 40, Serum Alcohol < 10 04/01/21 03:10: Influenza Type A (RT-PCR) Not Detected, Influenza Type B (RT-PCR) Not Detected, SARS-CoV-2 RNA (RT-PCR) Not Detected Laboratory Tests 04/01/21 02:55 A/P-Cardiology Assessment/Admission Diagnosis Ac inf wall STEMI - card cath on 04/01/21: prox occl of dominant RCA that was treated with successful PCI (Skypoint 3.5 x 38 stent, deployed at 20 fern); multiple 70-80% stenosis in mid and distal LAD were the vessel is of a small caliber; 80 distal LCX; LVEDP 23 mmHg; LVEF 60-65% H/o hypertension Chronic tobaccoism (smokes) Borderline DM II H/o hyperlipidemia H/o carotid arterial disease (monitored by Dr Monique) Admission Status: Inpatient Order (span 2 midnights) Reason for Inpatient Admission: Acute inf wall STEMI Discussion and Recomendations * DAPT * Beta-carlos manuel * Statin * Advised to quit smoking immediately and completely * Replenish electrolytes * Monitor labs * Echo Clinical Quality Measures AMI/AHF: ASA po Prior to arrival: Yes LUIS MCGEE MD FACP FAC CCDS Apr 01, 2021 04:43
[2021-04-01] MEDS ORDERED: MAGNESIUM 1 GM/100 ML IVPB 100 ML IV ONE (04:45)
--- NOTE | 2021-04-01 04:50 | Tele-ICU Consult ---
History of Present Illness History of Present Illness Date Seen by Provider: Apr 01, 2021 Time Seen by Provider: 04:49 Date of Admission 65 yo woman who had chest pain while walking her do in the evening of 03/31/21, resolved with rest, then recurred at approx 1 am on 04/01/21 with more intensity. Pain mid sternal, severe, radiating to L arm, associated with nausea, not experienced before. Chronic, slowly progressive, exertional shortness of breath. No swelling. No palp or syncope Pt went to cardiac catheterization technician: stent was placed in RCA; LAD stenosis was noted.. Allergies and Home Medications Allergies Coded Allergies: venom-honey bee (Unverified Allergy, Unknown, 07/14/18) Home Medications Atorvastatin Calcium 20 Mg Tablet, 20 MG PO HS, (Reported) Carvedilol 12.5 Mg Tablet, 12.5 MG PO BID, (Reported) Citalopram Hydrobromide 10 Mg Tablet, 10 MG PO DAILY, (Reported) Cyclobenzaprine HCl 10 Mg Tablet, 10 MG PO TID PRN for MUSCLE SPASMS, (Reported) Glipizide 10 Mg Tablet, 10 MG PO BID, (Reported) Lisinopril 10 Mg Tablet, 10 MG PO DAILY Prescribed by: MARTHA TAPIA on 11/13/182047 Lisinopril/Hydrochlorothiazide 1 Each Tablet, 1 EACH PO DAILY, (Reported) Melatonin 10 Mg Tablet, 10 MG PO HS, (Reported) Metformin HCl 1,000 Mg Tablet, 1,000 MG PO BID, (Reported) Ondansetron 4 Mg Tab.rapdis, 4 MG PO Q6H PRN for NAUSEA/VOMITING Prescribed by: TRINIDAD PAYTON on 04/28/20 1228 Ondansetron 8 Mg Tab.rapdis, 8 MG PO Q6H Prescribed by: MARTHA TAPIA on 08/05/20 1613 Pantoprazole Sodium 40 Mg Tablet.dr, 40 MG PO DAILY, (Reported) Trazodone HCl 150 Mg Tablet, 150 MG PO HS, (Reported) Varenicline Tartrate 1 Mg Tablet, 1 MG PO BID, (Reported) Past Medical/Social/Family Hx Patient Social History Tobacco Use?: Yes Smoking Status: Current Everyday Smoker Substance use?: Yes Substance type: Marijuana Alcohol Use?: Yes Alcohol Frequency: Once in a while Immunizations Up To Date Influenza Vaccine Up-to-Date: Yes; Up-to-Date Date of Pneumonia Vaccine: Dec 23, 2017 Current Status Primary Language: Maltese Preferred Spoken Language: Maltese Past Medical History htn cad Review of Systems Constitutional: see HPI Focused Exam Height, Weight, BMI Height: 5'2.00" Weight: 125lbs. 6.0oz. 56.637211oa; 22.00 BMI Method:Stated Exam Exam Patient acknowledged, consented, and participated in this virtual visit which was conducted using real time audio/video Vital Signs Date Time Temp Pulse Resp B/P (MAP) Pulse Ox O2 Delivery O2 Flow Rate FiO2 04/01/21 03:35 36.2 106 18 154/101 100 Nasal Cannula 2.00 04/01/21 03:00 Nasal Cannula 2.00 04/01/21 02:54 36.2 53 16 122/60 (80) 99 Room Air Height & Weight Height: 5'2.00" Weight: 125lbs. 6.0oz. 56.810862lf; 22.00 BMI Method:Stated General Appearance: No Apparent Distress Capillary Refill: Less Than 3 Seconds Results Lab Laboratory Tests 04/01/21 02:55 Assessment/Plan Assessment/Plan CAD non stemi sp stent continue management per cardio labs/ notes reviewed; pt was visualized appears stable BENEDICT DO MD Apr 01, 2021 04:50
[2021-04-01] MEDS: NS IV 1000 ML 1,000 ML IV SCH ×2 (05:12→10:37)
[2021-04-01] MEDS: POTASSIUM CL 10MEQ/50ML IVPB 50 ML IV SCH ×5 (05:13→08:01)
[2021-04-01 05:49] LABS: BASOPHILS # (AUTO) 0.1 10^3/uL (0.0-0.1); BASOPHILS % (AUTO) 1 % (0-10); MEAN PLATELET VOLUME 10.6 fL (9.0-12.2); NEUTROPHILS % (AUTO) 76 % (42-75)
[2021-04-01 05:51] LABS: EOSINOPHILS # (AUTO) 0.1 10^3/uL (0.0-0.3); EOSINOPHILS % (AUTO) 1 % (0-10); HEMATOCRIT 40 % (35-52); LYMPHOCYTES % (AUTO) 17 % (12-44); MEAN CORPUSCULAR HEMOGLOBIN 32 pg (25-34); MEAN CORPUSCULAR HGB CONC 35 g/dL (32-36); MEAN CORPUSCULAR VOLUME 92 fL (80-99); MONOCYTES # (AUTO) 0.6 10^3/uL (0.0-1.0); MONOCYTES % (AUTO) 5 % (0-12); NEUTROPHILS # (AUTO) 9.2 10^3/uL (1.8-7.8); PLATELET COUNT 228 10^3/uL (130-400)
[2021-04-01 06:26] LABS: BAND NEUTROPHILS 1 %; EOSINOPHILS % (MANUAL) 2 %; LYMPHOCYTES % (MANUAL) 15 %; MONOCYTES % (MANUAL) 1 %; NEUTROPHILS % (MANUAL) 81 %
[2021-04-01 06:27] LABS: RBC MORPH NORMAL
[2021-04-01] MEDS: inSUlin ASPART (NovoLOG) 1 UNIT/0.01 ML (CHARGE PER UNIT) SC SCH ×4 (06:42→20:15)
--- NOTE | 2021-04-01 07:10 | Diagnostic Imaging Report ---
HISTORY: Chest pain COMPARISON: 11/13/2018 TECHNIQUE: Frontal view of the chest. FINDINGS: There appears to be mildly increased central vascular congestion compared to the prior study. No consolidation is seen. There is no pleural effusion or pneumothorax. The defibrillator pad lies in the chest. The cardiac silhouette is normal in size. There is aortic atherosclerosis. IMPRESSION: 1. Mildly increased central vascular congestion with no focal consolidation seen. Dictated by: Dictated on workstation # [id number]
[2021-04-01] MEDS: ASPIRIN 81 MG CHEW (CHILDREN'S ASA) PO SCH (07:54)
[2021-04-01] MEDS: CLOPIDOGREL 75 MG (PLAVIX) TABLET PO SCH (07:54)
[2021-04-01] MEDS: ALPRAZolam 0.25 MG (XANAX) TAB PO PRN (07:59)
[2021-04-01] MEDS: morphine INJ 4 MG/ML 1 ML (VIAL/SYRINGE) IVP PRN ×2 (08:01→16:49)
--- NOTE | 2021-04-01 08:02 | CARDIAC CATHETERIZATION ---
DATE OF SERVICE: 04/01/2021 CARDIAC CATHETERIZATION AND CORONARY INTERVENTION REPORT The patient is a 65-year-old lady, who has multiple coronary artery disease risk factors and also gives a prior history of coronary artery disease and coronary interventions, but does not know any details. She presented with acute inferior wall ST elevation myocardial infarction. Emergency cardiac catheterization was carried out. PROCEDURE IN DETAIL: She was brought to the cardiac catheterization laboratory. Right groin was prepared and draped in the usual sterile fashion. Lidocaine 1% was used for local anesthesia. Modified Seldinger technique was used to advance a 6-Salvadorean sheath in right femoral artery. Catheter exchanges were carried out over an exchange length wire because there was mild difficulty in advancement of the wire across the ostial right common iliac artery. We used a 6-Salvadorean JR4 guide catheter with side holes to get to the culprit lesion immediately and carried out percutaneous intervention of the right coronary artery that is described below. Subsequently, we used a 6-Salvadorean JL4 diagnostic catheter to carry out left coronary angiography and a 6-Salvadorean pigtail catheter to carry out left heart catheterization. At the end of the procedure, the sheath was sutured in place and the patient was transferred to the floor for manual sheath removal. PERCUTANEOUS INTERVENTION TO THE RIGHT CORONARY ARTERY: The right coronary artery was found to be occluded in its proximal to mid portion. We were able to cross the complete occlusion with a ChoICE floppy wire with moderate difficulty and the tip of the wire was placed in a distal posterolateral branch. We then carried out multiple balloon angioplasty in the mid right coronary artery with 2.0 and 3.0 mm balloon. Subsequently, we stented the diseased segment with Skypoint 3.5 x 38 mm stent, which was deployed at 20 atmospheres. Complete occlusion was reduced to no significant residual and flow in the distal right coronary artery improved from ROGER 0 to RGOER 3. She tolerated the procedure well. HEMODYNAMICS: Left ventricular end-diastolic pressure following coronary angiography was 23 mmHg. There is no significant pressure gradient on pullback across the aortic valve. Ascending aortic pressure was 121/65 with a mean 84 mmHg. CORONARY ANGIOGRAPHY: Left main coronary artery does not exhibit significant obstructive disease. There is diffuse coronary calcification involving all coronary vessels. The left anterior descending artery has diffuse moderate disease and there are multiple 70% to 80% stenoses in its mid and distal portions. Here, the left anterior descending artery is of a very small caliber. The left circumflex artery is nondominant. It has diffuse moderate disease and has 80% stenosis in its distal portion. The right coronary artery is large and dominant. It was occluded in its proximal to mid portion and this was intervened on, as described above. Following deployment of 3.5 x 38 mm stent, there is no significant residual stenosis in the mid right coronary and the flow has improved from ROGER 0 to ROGER 3. There is diffuse zken-po-mwsbfefa disease of the right coronary artery. LEFT VENTRICULAR ANGIOGRAPHY: Left ventricular angiography was carried out in the right anterior oblique projection. Global left ventricular systolic function is well preserved. Left ventricular ejection fraction is approximately 60 to 65%. There appears to be mild inferoapical hypokinesis. CONCLUSIONS: 1. Multivessel coronary artery disease. The culprit lesion was complete occlusion in the proximal to mid right coronary artery that was successfully treated with Skypoint 3.5 x 38 mm stent that was deployed at 20 atmospheres. The left anterior descending artery has multiple 70% to 80% stenosis in its proximal to distal portions where the vessel is of a very small caliber. The left circumflex artery has 80% stenosis in its distal portion. Left circumflex artery is nondominant. 2. Well preserved global left ventricular systolic function with ejection fraction approximately 60% to 65%. 3. Mild inferoapical hypokinesis. 4. Left ventricular end-diastolic pressure 23 mmHg. DISCUSSION AND RECOMMENDATIONS: She has been hospitalized. Dual antiplatelet therapy has been initiated. Beta carlos manuel therapy will be given as tolerated. Statin therapy is being initiated. She has been advised to quit smoking immediately and completely. Further decision will be based on hospital course. Job ID: [id number] DocumentID: [id number] Dictated Date: 04/01/2021 04:58:27 Battery Technician Date: 04/01/2021 08:01:26 Dictated By: SITA DIETZ MD, MA, FACP, FACC,
[2021-04-01 12:27] LABS: BASOPHILS # (AUTO) 0.1 10^3/uL (0.0-0.1); BASOPHILS % (AUTO) 1 % (0-10); EOSINOPHILS # (AUTO) 0.1 10^3/uL (0.0-0.3); EOSINOPHILS % (AUTO) 1 % (0-10); HEMATOCRIT 38 % (35-52); HEMOGLOBIN 13.2 g/dL (11.5-16.0); LYMPHOCYTES # (AUTO) 3.6 10^3/uL (1.0-4.0); LYMPHOCYTES % (AUTO) 30 % (12-44); MEAN CORPUSCULAR HEMOGLOBIN 32 pg (25-34); MEAN CORPUSCULAR HGB CONC 35 g/dL (32-36); MEAN CORPUSCULAR VOLUME 92 fL (80-99); MEAN PLATELET VOLUME 10.4 fL (9.0-12.2); MONOCYTES % (AUTO) 9 % (0-12); NEUTROPHILS # (AUTO) 7.1 10^3/uL (1.8-7.8); NEUTROPHILS % (AUTO) 59 % (42-75); PLATELET COUNT 197 10^3/uL (130-400); WHITE BLOOD COUNT 11.9 10^3/uL (4.3-11.0)
[2021-04-01 12:46] LABS: POTASSIUM 4.2 MMOL/L (3.6-5.0)
[2021-04-01 12:47] LABS: CALCIUM 8.7 MG/DL (8.5-10.1)
[2021-04-01 12:51] LABS: CREATININE SERUM 0.96 MG/DL (0.60-1.30)
[2021-04-01 12:54] LABS: MAGNESIUM 2.3 MG/DL (1.6-2.4)
[2021-04-01] MEDS: ACETAMINOPHEN 325 MG TABLET PO PRN (16:46)
[2021-04-01] MEDS ORDERED: ONDANSETRON 4 MG/2 ML (SDV) Z0FRAN ONE (19:53)
[2021-04-01] MEDS: ONDANSETRON 4 MG/2 ML (SDV) Z0FRAN IVP PRN (19:55)
[2021-04-02] MEDS: inSUlin ASPART (NovoLOG) 1 UNIT/0.01 ML (CHARGE PER UNIT) SC SCH ×4 (06:42→20:45)
[2021-04-02] MEDS: CLOPIDOGREL 75 MG (PLAVIX) TABLET PO SCH (10:04)
[2021-04-02] MEDS: ASPIRIN 81 MG CHEW (CHILDREN'S ASA) PO SCH (10:04)
--- NOTE | 2021-04-02 14:15 | Progress Note - Cardiology ---
Cardiology SOAP Progress Note Subjective: No cp or palp or syncope Gen malaise and weakness present No swelling Intermittent nausea yesterday, none currently No v/d Objective: I&O/Vital Signs 04/02/21 04/02/21 04/02/21 04/02/21 04:00 06:24 07:00 08:43 Temp 36.1 36.6 Pulse 68 66 73 Resp 16 15 B/P (MAP) 94/57 125/58 Pulse Ox 95 97 O2 Delivery Room Air Room Air Room Air O2 Flow Rate 0.00 04/02/21 04/02/21 11:32 12:38 Temp 36.5 Pulse 72 76 Resp 16 B/P (MAP) 125/74 Pulse Ox 96 O2 Delivery Room Air O2 Flow Rate 0.00 0.00 04/02/21 00:00 Intake Total 850 ml Balance 850 ml Weight (Pounds): 125 Weight (Ounces): 6.0 Weight (Calculated Kilograms): 56.763741 Constitutional: AAO x 3, well-developed, well-nourished Respiratory: No accessory muscle use; other (fair air entry, prolong exp) Cardiovascular: regular rate-rhythm, S1 and S2, systolic murmur (soft SAUL at the card base) Gastrointestional: No tender; soft; No guarding, No rebound; audible bowel sounds Extremities: No clubbing, No cyanosis, No significant edema Neurologic/Psychiatric: oriented x 3, other (moves all limbs equally) Skin: warm/dry; No rash on exposed areas, No ulcerations on exposed areas Results/Procedures: Labs Laboratory Tests 04/01/21 16:59: Glucometer 102 04/01/21 20:02: Glucometer 119H 04/02/21 06:40: Glucometer 143H 04/02/21 11:08: Glucometer 139H A/P: Assessment: Ac inf wall STEMI - card cath on 04/01/21: prox occl of dominant RCA that was treated with successful PCI (Skypoint 3.5 x 38 stent, deployed at 20 fern); multiple 70-80% stenosis in mid and distal LAD where the vessel is of a small caliber; 80 distal LCX; LVEDP 23 mmHg; LVEF 60-65% - echo on 04/02/21: LVEF 55-60%, mod conc LVH, grade 2 diastolic dysfunction, PASP 25 mmHg H/o hypertension Chronic tobaccoism (smokes) Borderline DM II H/o hyperlipidemia H/o carotid arterial disease (monitored by Dr Monique) Plan: * DAPT * Beta-carlos manuel * Statin * Advised to quit smoking immediately and completely * Monitor labs * Increase ambulation Clinical Quality Measures AMI/AHF: ASA po Prior to arrival: Yes SITA DIETZ MD FACP [facility] CCDS Apr 02, 2021 14:15
[2021-04-02] MEDS: morphine INJ 4 MG/ML 1 ML (VIAL/SYRINGE) IVP PRN ×2 (14:50→19:11)
[2021-04-02] MEDS: ENOXAPARIN 40 MG/0.4 ML (LOVENOX) SYR SC SCH (17:19)
[2021-04-03] MEDS: ALPRAZolam 0.25 MG (XANAX) TAB PO PRN (01:32)
[2021-04-03] MEDS: ONDANSETRON 4 MG/2 ML (SDV) Z0FRAN IVP PRN (06:12)
[2021-04-03] MEDS: inSUlin ASPART (NovoLOG) 1 UNIT/0.01 ML (CHARGE PER UNIT) SC SCH ×4 (08:12→20:26)
[2021-04-03] MEDS: ASPIRIN 81 MG CHEW (CHILDREN'S ASA) PO SCH (09:59)
[2021-04-03] MEDS: CLOPIDOGREL 75 MG (PLAVIX) TABLET PO SCH (09:59)
--- NOTE | 2021-04-03 10:22 | Cardiology Progress Note ---
Subjective Date Seen by Provider: Apr 03, 2021 Time Seen by Provider: 10:18 Subjective/Events-last exam Patient was seen at bedside, laying down in bed, reporting some nausea and shortness of breath last night. Had difficulty sleeping last night. No active chest pain today. Review of Systems General: No Chills, No Night Sweats, No Fatigue, No Malaise, No Appetite, No Other HEENT: No Head Aches, No Visual Changes, No Eye Pain, No Ear Pain, No Dysphasia, No Sinus Congestion, No Post Nasal Drip, No Sore Throat, No Other Pulmonary: Dyspnea; No Cough, No Pleuritic Chest Pain, No Other Cardiovascular: Chest Pain; No: Palpitations, Orthopnea, Paroxysmal Noc. Dyspnea, Edema, Lt Headedness, Other Objective-Cardiology Exam Last Set of Vital Signs Vital Signs 04/02/21 04/03/21 11:32 08:00 Temp 36.3 Pulse 84 Resp 20 B/P (MAP) 147/79 Pulse Ox 94 O2 Delivery Room Air O2 Flow Rate 0.00 0.00 I&O Intake and Output 04/03/21 00:00 Intake Total 880 ml Balance 880 ml Intake Oral 880 ml # Voids 7 General: Alert, Oriented X3, Cooperative HEENT: Atraumatic, PERRLA Neck: Supple, No JVD, No Thyromegaly Lungs: Clear to Auscultation, Normal Air Movement Heart: Regular Rate, Normal S1, Normal S2, No Murmurs Abdomen: Normal Bowel Sounds, Soft, No Tenderness, No Hepatosplenomegaly, No Masses Extremities: No Clubbing, No Cyanosis, No Edema, Normal Pulses, No Tenderness/Swelling Skin: No Rashes, No Breakdown, No Significant Lesion Neuro: Normal Gait, Normal Speech, Strength at 5/5 X4 Ext, Normal Tone, Sensation Intact Psych/Mental Status: Mental Status NL, Mood NL A/P-Cardiology Admission Diagnosis Chest pain Coronary artery disease Hypertension Hyperlipidemia Assessment/Plan Chest pain, resembling angina, I am adding Imdur 30 mg daily and evaluate tolerance and response. Coronary artery disease status post acute inferior wall ST elevation myocardial infarction, emergency cardiac catheterization and stenting carried out by Dr. Mcgee on 04/01/2021 with successful deployment of rey point stent 3.5 x 38 mm deployed under 20 fern with excellent results. Patient had multiple lesions at the mid and distal LAD and ostial diagonal artery and mid circumflex artery. Probably would require high risk intervention to the LAD/diagonal and the circumflex artery. The distal disease will be treated medically. Continue on aspirin and Plavix at this time. Hypertension, difficult to control as an outpatient, better control at this time. I am switching metoprolol to Coreg 12.5 mg twice daily. Patient was taking clonidine 0.1 mg 3 times a day as an outpatient, does not require it at this time with her blood pressure Hyperlipidemia, maintained on Lipitor 80 mg daily. Diabetes mellitus, maintained on metformin. Carotid stenosis, mild disease, continue to monitor Tobaccoism, educated on smoking cessation History of bilateral mastectomy and breast reconstruction. Gastroesophageal reflux disease, hiatal hernia. CATHERINE PORTILLO MD Apr 03, 2021 10:22
[2021-04-03] MEDS ORDERED: PANTOPRAZOLE 40 MG (PROTONIX) TAB PO ONE (11:32)
[2021-04-03] MEDS: ACETAMINOPHEN 325 MG TABLET PO PRN ×2 (11:39→22:08)
[2021-04-03] MEDS: PANTOPRAZOLE 40 MG (PROTONIX) TAB PO SCH (11:39)
[2021-04-03] MEDS: ISOSORBIDE MONONITRATE 30 MG (IMDUR) TAB PO SCH (12:06)
[2021-04-03] MEDS: morphine INJ 4 MG/ML 1 ML (VIAL/SYRINGE) IVP PRN (16:36)
[2021-04-03] MEDS: ENOXAPARIN 40 MG/0.4 ML (LOVENOX) SYR SC SCH (16:37)
[2021-04-03] MEDS: DOCUSATE SODIUM 100 MG (COLACE) CAP PO SCH (20:10)
[2021-04-03] MEDS ORDERED: traZODone 150 MG (DESYREL) TABLET PO SCH (21:00)
[2021-04-04] MEDS ORDERED: NS IV 500 ML 500 ML ONE (00:59)
[2021-04-04] MEDS ORDERED: NS IV 1000 ML 1,000 ML ONE (00:59)
[2021-04-04] MEDS ORDERED: NS IV 500 ML 500 ML IV SCH (01:00)
[2021-04-04] MEDS ORDERED: NS IV 1000 ML 1,000 ML IV SCH (03:00)
[2021-04-04 06:15] LABS: BASOPHILS # (AUTO) 0.1 10^3/uL (0.0-0.1); BASOPHILS % (AUTO) 1 % (0-10); EOSINOPHILS # (AUTO) 0.3 10^3/uL (0.0-0.3); EOSINOPHILS % (AUTO) 3 % (0-10); HEMATOCRIT 36 % (35-52); HEMOGLOBIN 12.7 g/dL (11.5-16.0); LYMPHOCYTES % (AUTO) 34 % (12-44); MEAN CORPUSCULAR HEMOGLOBIN 32 pg (25-34); MEAN CORPUSCULAR HGB CONC 35 g/dL (32-36); MEAN CORPUSCULAR VOLUME 92 fL (80-99); MEAN PLATELET VOLUME 10.6 fL (9.0-12.2); MONOCYTES # (AUTO) 0.8 10^3/uL (0.0-1.0); MONOCYTES % (AUTO) 10 % (0-12); NEUTROPHILS # (AUTO) 4.5 10^3/uL (1.8-7.8); NEUTROPHILS % (AUTO) 52 % (42-75); PLATELET COUNT 176 10^3/uL (130-400); WHITE BLOOD COUNT 8.6 10^3/uL (4.3-11.0)
[2021-04-04 06:35] LABS: ALBUMIN 3.4 GM/DL (3.2-4.5); BILIRUBIN,TOTAL 0.4 MG/DL (0.1-1.0); CALCIUM 8.8 MG/DL (8.5-10.1); CREATININE SERUM 0.92 MG/DL (0.60-1.30); POTASSIUM 3.8 MMOL/L (3.6-5.0); TOTAL PROTEIN 5.9 GM/DL (6.4-8.2)
[2021-04-04] MEDS ORDERED: CLOP75TA28 PO (08:16)
[2021-04-04] MEDS ORDERED: CARV3.12 PO (08:16)
[2021-04-04] MEDS ORDERED: ATOR40TA PO (08:16)
[2021-04-04] MEDS ORDERED: ISOS30TA82 PO (08:16)
[2021-04-04] MEDS ORDERED: ASPI81TA64 PO (08:16)
--- NOTE | 2021-04-04 08:16 | Discharge Inst-Post CATH ---
Discharge Inst-CATH/EP Problems Reviewed?: Yes Post Cardiac Cath/EP D/C Inst Follow Up/Plan Appointment with Dr. Monique's office in 2 to 4 weeks <b>CARDIAC CATH/EP PROCEDURE DISCHARGE INSTRUCTIONS</b> ACTIVITY * Go Home directly and rest. * Limit activity of the leg (or wrist if it was used) for 7 days including aer obics, swimming, jogging, bicycling, etc. * Restrict stair-climbing for 7 days if possible, if not, climb up with your non-cath leg, then bring together on the same step. * Avoid lifting, pushing, pulling or excessive movement of the affected extremi ty for 7 days. * Customary sexual activity may be resumed after 2 days-use caution not to use a position that strains or causes pain to the affected extremity. * No driving for 24 hours. * NO SMOKING. * Avoid straining for bowel movements for 7 days. * Gentle walking on level ground is allowed. * Returning to work will depend on the type of procedure and the results. Your doctor will discuss this with you. CALL YOUR DOCTOR FOR ANY OF THE FOLLOWING: *If bleeding from the puncture site occurs- Apply gentle pressure to site with clean cloth and call your doctor or EMS. * If a knot or lump forms under the skin, increases in size, or causes pain. * If bruising appears to be worsening or moving further down your leg instead of disappearing. * Temperature above 101 F. CARE OF YOUR GROIN INCISION; * Bruising or purple discoloration of the skin near the puncture site is common. * You may shower only, no bathtub bathing for 5 days. Be careful to avoid slipping as your leg may feel stiff. * If a closure device was used on your femoral artery, please see the attached guide regarding care of the device and your leg. * Leave dressing on FOR 24 hours. CARE OF YOUR WRIST INCISION; * Bruising or purple discoloration of the skin near the puncture site is common. * You may shower. * DO NOT submerge wrist. * Leave dressing on FOR 24 hours. CATHERINE MONIQUE MD Apr 04, 2021 08:16
--- NOTE | 2021-04-04 08:37 | Cardiology Discharge Summary ---
Discharge Summary Hospital Course Problems Reviewed?: Yes Hospital Course Date of Admission: Apr 01, 2021 at 04:35 Admission Diagnosis : Family Physician/Provider: Velvet Mancini Aprn Date of Discharge: 04/04/21 Discharge Diagnosis: [Acute ST elevation myocardial infarction Coronary artery disease Hypertension Hyperlipidemia] Hospital Course: [ Chest pain, resembling angina, resolved after adding Imdur. Continue to monitor Coronary artery disease status post acute inferior wall ST elevation myocardial infarction, emergency cardiac catheterization and stenting carried out by Dr. Mcgee on 04/01/2021 with successful deployment of rey point stent 3.5 x 38 mm deployed under 20 fern with excellent results. Patient had multiple lesions at the mid and distal LAD and ostial diagonal artery and mid circumflex artery. Probably would require high risk intervention to the LAD/diagonal and the circumflex artery. The distal disease will be treated medically. Continue on aspirin and Plavix at this time. Hypertension, difficult to control as an outpatient, had transient episode of hypotension, I am questioning her compliance as an outpatient. I will continue on Imdur and decrease Coreg to 3.125 twice daily and monitor tolerance and response Hyperlipidemia, maintained on Lipitor 40 mg daily Diabetes mellitus, maintained on metformin. Carotid stenosis, mild disease, continue to monitor Tobaccoism, educated on smoking cessation History of bilateral mastectomy and breast reconstruction. Gastroesophageal reflux disease, hiatal hernia.] Labs and Pending Lab Test: Laboratory Tests 04/03/21 12:12: Glucometer 157H 04/03/21 15:51: Glucometer 100 04/03/21 20:21: Glucometer 156H 04/04/21 06:00: White Blood Count 8.6, Red Blood Count 3.92, Hemoglobin 12.7, Hematocrit 36, Mean Corpuscular Volume 92, Mean Corpuscular Hemoglobin 32, Mean Corpuscular Hemoglobin Concent 35, Red Cell Distribution Width 11.5, Platelet Count 176, Mean Platelet Volume 10.6, Immature Granulocyte % (Auto) 1, Neutrophils (%) (Auto) 52, Lymphocytes (%) (Auto) 34, Monocytes (%) (Auto) 10, Eosinophils (%) (Auto) 3, Basophils (%) (Auto) 1, Neutrophils # (Auto) 4.5, Lymphocytes # (Auto) 3.0, Monocytes # (Auto) 0.8, Eosinophils # (Auto) 0.3, Basophils # (Auto) 0.1, Immature Granulocyte # (Auto) 0.1, Sodium Level 139, Potassium Level 3.8, Chloride Level 108H, Carbon Dioxide Level 19L, Anion Gap 12, Blood Urea Nitrogen 15, Creatinine 0.92, Estimat Glomerular Filtration Rate 69, BUN/Creatinine Ratio 16, Glucose Level 131H, Calcium Level 8.8, Corrected Calcium 9.3, Total Bilirubin 0.4, Aspartate Amino Transf (AST/SGOT) 45H, Alanine Aminotransferase (ALT/SGPT) 36, Alkaline Phosphatase 55, Total Protein 5.9L, Albumin 3.4 Home Meds Active Coreg (Carvedilol) 3.125 Mg Tablet 3.125 Mg PO BID Children's Aspirin (Aspirin) 81 Mg Tab.chew 81 Mg PO DAILY Isosorbide Mononitrate ER (Isosorbide Mononitrate) 30 Mg Tab.er.24h 30 Mg PO DAILY Lipitor (Atorvastatin Calcium) 40 Mg Tablet 40 Mg PO HS Clopidogrel (Clopidogrel Bisulfate) 75 Mg Tablet 75 Mg PO DAILY Ondansetron Odt (Ondansetron) 8 Mg Tab.rapdis 8 Mg PO Q6H Ondansetron Odt (Ondansetron) 4 Mg Tab.rapdis 4 Mg PO Q6H PRN Lisinopril 10 Mg Tablet 10 Mg PO DAILY Reported Melatonin 10 Mg Tablet 10 Mg PO HS Cyclobenzaprine HCl 10 Mg Tablet 10 Mg PO TID PRN Trazodone HCl 150 Mg Tablet 150 Mg PO HS Pantoprazole Sodium 40 Mg Tablet.dr 40 Mg PO DAILY Glipizide 10 Mg Tablet 10 Mg PO BID Atorvastatin Calcium 20 Mg Tablet 20 Mg PO HS Citalopram HBr (Citalopram Hydrobromide) 10 Mg Tablet 10 Mg PO DAILY Lisinopril-Hctz 20-25 mg Tab (Lisinopril/Hydrochlorothiazide) 1 Each Tablet 1 Each PO DAILY Carvedilol 12.5 Mg Tablet 12.5 Mg PO BID Metformin HCl 1,000 Mg Tablet 1,000 Mg PO BID Chantix (Varenicline Tartrate) 1 Mg Tablet 1 Mg PO BID Assessment/Pt DC Instructions Arrangement for follow-up as an outpatient Educated on compliance with medication Educated on smoking cessation Discharge Diet: Low Sodium Diet Discharge Physical Examination Allergies: Coded Allergies: venom-honey bee (Unverified Allergy, Unknown, 07/14/18) General Appearance: No Apparent Distress, WD/WN HEENT: PERRL/EOMI, TMs Normal, Normal ENT Inspection, Pharynx Normal Respiratory: Chest Non Tender, Lungs Clear, Normal Breath Sounds, No Accessory Muscle Use, No Respiratory Distress Cardiovascular: Regular Rate, Rhythm, No Edema, No Gallop, No JVD, No Murmur, Normal Peripheral Pulses Gastrointestinal: Normal Bowel Sounds, No Organomegaly, No Pulsatile Mass, Non Tender, Soft Extremity: Normal Capillary Refill, Normal Inspection, Normal Range of Motion, Non Tender, No Calf Tenderness, No Pedal Edema Skin: Normal Color, Warm/Dry Neurologic/Psychiatric: Alert, Oriented x3, No Motor/Sensory Deficits, Normal Mood/Affect, truck driving II-XII Norm as Tested Clinical Quality Measures Admission Status Admission Status: Inpatient Order (span 2 midnights) Reason for Inpatient Admission: Acute myocardial infarction AMI/AHF: Ejection Fraction: Normal LVSF ASA po Prior to arrival: Yes CATHERINE PORTILLO MD Apr 04, 2021 08:37
[2021-04-04] MEDS: ISOSORBIDE MONONITRATE 30 MG (IMDUR) TAB PO SCH (09:00)
[2021-04-04] MEDS: PANTOPRAZOLE 40 MG (PROTONIX) TAB PO SCH (09:00)
[2021-04-04] MEDS: ASPIRIN 81 MG CHEW (CHILDREN'S ASA) PO SCH (09:00)
[2021-04-04] MEDS: CLOPIDOGREL 75 MG (PLAVIX) TABLET PO SCH (09:00)
[2021-04-04] MEDS: DOCUSATE SODIUM 100 MG (COLACE) CAP PO SCH (09:00)
[2021-04-04] MEDS: inSUlin ASPART (NovoLOG) 1 UNIT/0.01 ML (CHARGE PER UNIT) SC SCH (09:01)
[2021-04-04] MEDS: ACETAMINOPHEN 325 MG TABLET PO PRN (12:26)
== END 2021-04-04 14:02 | disposition home or self-care (01) | DRG 251 ==
LOC: EDUNIT# 02:52 → ER 02:53 → SDC 03:07 → ICU 04:35 → CSD 10:13
PROVIDERS: ADMIT Internal Medicine Cardiovascular Disease; ATTEND Internal Medicine Cardiovascular Disease
PROC: 02703ZZ Dilation of Coronary Artery, One Artery, Percutaneous Approach (ICD-10-PCS; principal; 2021-04-01)
PROC: 4A023N7 Measurement of Cardiac Sampling and Pressure, Left Heart, Percutaneous Approach (ICD-10-PCS; 2021-04-01)
PROC: B2111ZZ Fluoroscopy of Multiple Coronary Arteries using Low Osmolar Contrast (ICD-10-PCS; 2021-04-01)
PROC: B2151ZZ Fluoroscopy of Left Heart using Low Osmolar Contrast (ICD-10-PCS; 2021-04-01)
DX: I21.19 ST elevation (STEMI) myocardial infarction involving other coronary artery of inferior wall (principal); I25.119 Atherosclerotic heart disease of native coronary artery with unspecified angina pectoris; I10 Essential (primary) hypertension; E11.9 Type 2 diabetes mellitus without complications; E78.00 Pure hypercholesterolemia, unspecified; E78.5 Hyperlipidemia, unspecified; F41.9 Anxiety disorder, unspecified; F32.A Depression, unspecified; H54.7 Unspecified visual loss; K21.9 Gastro-esophageal reflux disease without esophagitis; I65.29 Occlusion and stenosis of unspecified carotid artery; F17.210 Nicotine dependence, cigarettes, uncomplicated; K44.9 Diaphragmatic hernia without obstruction or gangrene; Z86.73 Personal history of transient ischemic attack (TIA), and cerebral infarction without residual deficits; Z79.899 Other long term (current) drug therapy; Z79.84 Long term (current) use of oral hypoglycemic drugs; Z90.13 Acquired absence of bilateral breasts and nipples; Z85.3 Personal history of malignant neoplasm of breast; Z98.82 Breast implant status
CPT/HCPCS: 36415; 71045; 80048; 80053; 80320; 82150; 82550; 82553; 82947; 83690; 83735; 83874; 83880; 84484; 85007; 85025; 85027; 85610; 85730; 87636; 93005; 93041; 93306; 93458

== ENCOUNTER 2021-05-15 07:46 | Day surgery (SDC) | payer MEDICARE ==
[2021-05-15] VITALS (13 sets, daily range): BP systolic 142–215; BP diastolic 72–109
[~2021-05-15] VITALS: Ht 157.5 cm; Wt 59.5 kg
[~2021-05-15 07:46] MED LIST changes: +ASPI81TA64 PO; +ATOR40TA PO; +CARV3.12 PO; +CLOP75TA28 PO; +ISOS30TA82 PO
[2021-05-15] MEDS ORDERED: LIDOCAINE 1% INJ 50 ML (XYLOCAINE) VIAL ONE (07:54)
[2021-05-15] MEDS ORDERED: NS IV 1000 ML 1,000 ML ONE (07:54)
[2021-05-15] MEDS ORDERED: HEParin (CATH LAB) 2,000 ML IV ONE (07:54)
[2021-05-15] MEDS ORDERED: NS IV 1000 ML 1,000 ML IV SCH ×2 (08:00→09:30)
[2021-05-15] MEDS ORDERED: fentaNYL INJ 100 MCG/2 ML AMP ONE (08:03)
[2021-05-15] MEDS ORDERED: MIDAZOLAM 5 MG/5 ML (VERSED) VIAL ONE (08:03)
--- NOTE | 2021-05-15 08:13 | Diagnostic Imaging Report ---
EXAMINATION: Chest 1 view HISTORY: chest pain COMPARISON: 04/01/2021 FINDINGS: Heart size and pulmonary vasculature are normal. The lungs are clear without consolidation, pleural effusion, or pneumothorax. The osseous structures are intact. IMPRESSION: 1. No acute radiographic abnormality in the chest. Dictated by: Dictated on workstation # [id number]
--- NOTE | 2021-05-15 08:13 | Conscious Sedation/ASA ---
Conscious Sedation Pre-Proced Time 08:13 ASA Score 3 For ASA 3 and 4: Consider anesthesia and medical clearance. Also, for patients with a history of failed moderate sedation consider anesthesia. Airway Lungs Heart ASA score ASA 1: a normal healthy patient ASA 2: a patient with a mild systemic disease (mid diabetes, controlled hypertension, obesity x ASA 3: a patient with a severe systemic disease that limits activity (angina, COPD, prior Myocardial infarction) ASA 4: a patient with an incapacitating disease that is a constant threat to life (CHF, renal failure) ASA 5: a moribund patient not expected to survive 24 hrs. (ruptured aneurysm) ASA 6: a declared brain- patient whose organs are being harvested. For emergent operations, add the letter E after the classification Mallampati Classification Grade 3 Sedation Plan Analgesia, Amnesia, Plan communicated to team members, Discussed options with patient/fam, Discussed risks with patient/fam The patient is an appropriate candidate to undergo the planned procedure, sedation, and anesthesia. The patient immediately re-assessed prior to indication. CATHERINE PORTILLO MD May 15, 2021 08:13
[2021-05-15 08:24] LABS: BILIRUBIN,URINE NEGATIVE (NEGATIVE); CLARITY,URINE CLEAR; COLOR,URINE YELLOW; GLUCOSE, URINE (UA) TRACE (NEGATIVE); KETONES,URINE NEGATIVE (NEGATIVE); LEUKOCYTE ESTERASE ,URINE NEGATIVE (NEGATIVE); NITRITE,URINE NEGATIVE (NEGATIVE); PROTEIN,URINE NEGATIVE (NEGATIVE)
[2021-05-15 08:32] LABS: HEMATOCRIT 40 % (35-52); MEAN CORPUSCULAR HEMOGLOBIN 32 pg (25-34); MEAN CORPUSCULAR HGB CONC 35 g/dL (32-36); MEAN CORPUSCULAR VOLUME 90 fL (80-99); MEAN PLATELET VOLUME 10.4 fL (9.0-12.2); PLATELET COUNT 214 10^3/uL (130-400)
[2021-05-15 08:35] LABS: CHLORIDE 102 MMOL/L (98-107); POTASSIUM 3.6 MMOL/L (3.6-5.0)
[2021-05-15 08:36] LABS: ALBUMIN 4.6 GM/DL (3.2-4.5); SODIUM 139 MMOL/L (135-145)
[2021-05-15 08:36] LABS: BACTERIA,URINE NEGATIVE /HPF; RBC,URINE RARE /HPF; RENAL EPITHELIAL CELLS,URINE RARE /HPF; SQUAMOUS EPITHELIAL CELL,UR RARE /HPF; WBC,URINE RARE /HPF
[2021-05-15 08:37] LABS: CALCIUM 10.1 MG/DL (8.5-10.1)
[2021-05-15 08:38] LABS: GLUCOSE 181 MG/DL (70-105); PROTHROMBIN TIME PATIENT 13.7 SEC (12.2-14.7); TOTAL PROTEIN 7.6 GM/DL (6.4-8.2); TRIGLYCERIDES 288 MG/DL (<150); VLDL CHOLESTEROL 58 MG/DL (5-40)
[2021-05-15 08:39] LABS: CARBON DIOXIDE 24 MMOL/L (21-32)
[2021-05-15 08:40] LABS: BILIRUBIN,TOTAL 0.5 MG/DL (0.1-1.0)
[2021-05-15 08:42] LABS: ALKALINE PHOSPHATASE 71 U/L (40-136); CREATININE SERUM 1.18 MG/DL (0.60-1.30); GFR ESTIMATED 51
[2021-05-15 08:43] LABS: BUN/CREATININE RATIO 17; CHOLESTEROL 148 MG/DL (< 200)
[2021-05-15 08:44] LABS: HDL CHOLESTEROL 39 MG/DL (40-60)
[2021-05-15] MEDS ORDERED: ASPI-1238 PO (08:44)
[2021-05-15] MEDS ORDERED: PANT20TA18 PO (08:44)
[2021-05-15 08:45] LABS: ALANINE AMINOTRANSFERASE 23 U/L (0-55)
[2021-05-15] MEDS ORDERED: CLN.1T PO (08:45)
[2021-05-15] MEDS ORDERED: CARV3.122 PO (08:45)
[2021-05-15] MEDS ORDERED: ISOS30TA82 PO (08:45)
[2021-05-15] MEDS ORDERED: ATOR40TA70 PO (08:45)
[2021-05-15] MEDS ORDERED: DULA1.5P2 SQ (08:45)
[2021-05-15] MEDS ORDERED: HYDR50TA76 PO (08:45)
[2021-05-15] MEDS ORDERED: CLOP75TA28 PO (08:45)
[2021-05-15] MEDS ORDERED: HEParin 1000 UNIT/ML (10ML VIAL) FOR BOLUS ONE (09:14)
[2021-05-15] MEDS ORDERED: PATIENT MAY USE OWN MEDS, ALL PO SCH (09:30)
--- NOTE | 2021-05-15 09:35 | Discharge Inst-Post CATH ---
Discharge Inst-CATH/EP Problems Reviewed?: Yes Post Cardiac Cath/EP D/C Inst Follow Up/Plan Appointment with Dr. Giorgio Mondragon next week Appointment with Dr. Monique's office in 2 weeks <b>CARDIAC CATH/EP PROCEDURE DISCHARGE INSTRUCTIONS</b> ACTIVITY * Go Home directly and rest. * Limit activity of the leg (or wrist if it was used) for 7 days including aerobics, swimming, jogging, bicycling, etc. * Restrict stair-climbing for 7 days if possible, if not, climb up with your non-cath leg, then bring together on the same step. * Avoid lifting, pushing, pulling or excessive movement of the affected extremity for 7 days. * Customary sexual activity may be resumed after 2 days-use caution not to use a position that strains or causes pain to the affected extremity. * No driving for 24 hours. * NO SMOKING. * Avoid straining for bowel movements for 7 days. * Gentle walking on level ground is allowed. * Returning to work will depend on the type of procedure and the results. Your doctor will discuss this with you. CALL YOUR DOCTOR FOR ANY OF THE FOLLOWING: *If bleeding from the puncture site occurs- Apply gentle pressure to site with clean cloth and call your doctor or EMS. * If a knot or lump forms under the skin, increases in size, or causes pain. * If bruising appears to be worsening or moving further down your leg instead of disappearing. * Temperature above 101 F. CARE OF YOUR GROIN INCISION; * Bruising or purple discoloration of the skin near the puncture site is common. * You may shower only, no bathtub bathing for 5 days. Be careful to avoid slipping as your leg may feel stiff. * If a closure device was used on your femoral artery, please see the attached guide regarding care of the device and your leg. * Leave dressing on FOR 24 hours. CARE OF YOUR WRIST INCISION; * Bruising or purple discoloration of the skin near the puncture site is common. * You may shower. * DO NOT submerge wrist. * Leave dressing on FOR 24 hours. CATHERINE MONIQUE MD May 15, 2021 09:35
[2021-05-15] MEDS ORDERED: OMG1KC PO (09:36)
--- NOTE | 2021-05-15 09:41 | Cardiac Cath Report ---
Cardiac Cath Report Physician (s)/Paraplanner (s) Physician CATHERINE PORTILLO MD Pre-Procedure Diagnosis Pre-Procedure Diagnosis: Coronary artery disease Post-Procedure Note Procedure Start Date: May 15, 2021 Name of Procedure: Left heart catheterization Left ventriculogram Aortic arch angiogram Abdominal aortogram with bilateral lower extremities runoff Findings/Procedure Note PROCEDURE NOTE: 66-year-old lady with history of diabetes mellitus, hypertension hyperlipidemia in addition to tobaccoism, admitted with acute ST elevation myocardial infarction in March 2021, underwent emergency stenting of the right coronary artery, had multiple lesions in the LAD and circumflex artery, continue to have chest pain, she was scheduled for cardiac catheterization possible PTCA. Today she reported that she has been having cramps and pain in her left leg on walking, has diminished pulse. Reporting that her left leg feels cold. After explaining the procedure to the patient, all pros and cons were explained, all questions were answered. The patient signed the consent and then she was placed on the cardiac catheterization laboratory. Groin was prepped SL fashion local anesthesia was used. Sheath placed in the right femoral artery, Sina right was advanced to the right coronary artery, angiogram was done. Prolapsed to the left ventricle and pressure was measured pullback LV to aorta was done. 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 Then I advanced EBU guide and I was planning to intervene on the circumflex artery. Angiogram was done showing severe stenosis in the mid circumflex artery what I noticed also severe stenosis at the mid LAD involving the ostium of the diagonal artery and another lesion in the distal LAD. I decided to abort. The guide was removed. Patient did not receive any additional heparin doses. Then I advanced a pigtail catheter to the left ventricular cavity, left ventriculogram was done, pullback LV to aorta was done and evaluated the aortic arch angiogram then placed the pigtail catheter in the abdominal aorta and did abdominal aortogram with bilateral lower extremities runoff. At the end of the procedure the sheath was removed. Closure device was deployed FINDINGS: Hemodynamics LV 162/17, end-diastolic pressure of 17 Aorta 150/62 mean of 96 ANATOMY: Left Main is free of obstructive disease Left Anterior Descending has severe stenosis in the midportion involving the ostium of a diagonal artery and moderate to severe stenosis distally. Left Circumflex has severe stenosis at the midportion Right Coronary Artery is a large dominant artery with patent stent in the mid right coronary artery, mild disease distally LV Gram was done showing normal left ventricular size, ejection fraction 50% Aorta evaluation done with aortic arch angiogram showing hypertensive changes in the aortic arch, no dissection or aneurysm, mild irregularity in the left brachiocephalic artery, left carotid and subclavian arteries. Abdominal aortogram with bilateral runoff showing normal abdominal aorta, normal renal artery SMA and ABEL. 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 On the right side there is total occlusion of the mid right SFA reconstructed by collaterals just above the popliteal artery. CONCLUSION: 1. Severe stenosis in the mid circumflex artery, mid LAD involving the ostium of the diagonal artery and distal LAD. 2. Calcified right coronary artery with patent stent in the mid right coronary artery 3. Normal left ventricular size and systolic function estimate ejection fraction 60% 4. Hypertensive changes in the aortic arch with normal great vessels of the neck 5. 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 Total occlusion in the mid right SFA reconstructed by collaterals 7. Normal renal arteries and abdominal aorta with hypertensive changes DISCUSSION AND RECOMMENDATION: Continue to maximize medical therapy. I will refer the patient for evaluation for CABG and vascular surgery otherwise we will refer her to a tertiary care center for high risk intervention Anesthesia Type: Conscious Sedation Estimated blood loss (mL): 25 ml Contrast Amount: 83 ml Total Radiation Dose: 412 mGy Post-Procedure Diagnosis Post-operative diagnosis: Chest pain Claudication Coronary artery disease Peripheral arterial disease Hypertension Hyperlipidemia Diabetes mellitus CATHERINE PORTILLO MD May 15, 2021 09:41
[2021-05-15] MEDS ORDERED: OMEGA 3 (FISH OIL) 1000 MG CAP PO SCH (18:00)
== END 2021-05-15 14:35 | disposition home or self-care (01) ==
LOC: CATH 07:46 → SDC 10:00 → CATH 14:35
PROVIDERS: ATTEND Internal Medicine Cardiovascular Disease
DX: E11.51 Type 2 diabetes mellitus with diabetic peripheral angiopathy without gangrene (principal); I70.211 Atherosclerosis of native arteries of extremities with intermittent claudication, right leg; I74.5 Embolism and thrombosis of iliac artery; I70.92 Chronic total occlusion of artery of the extremities; I25.10 Atherosclerotic heart disease of native coronary artery without angina pectoris; I10 Essential (primary) hypertension; E78.5 Hyperlipidemia, unspecified; I65.23 Occlusion and stenosis of bilateral carotid arteries; K21.9 Gastro-esophageal reflux disease without esophagitis; K44.9 Diaphragmatic hernia without obstruction or gangrene; I25.2 Old myocardial infarction; Z95.5 Presence of coronary angioplasty implant and graft; Z79.82 Long term (current) use of aspirin; Z79.899 Other long term (current) drug therapy; Z79.02 Long term (current) use of antithrombotics/antiplatelets; Z87.891 Personal history of nicotine dependence; Z90.13 Acquired absence of bilateral breasts and nipples; Z98.82 Breast implant status
CPT/HCPCS: 36221; 36430; 71045; 80053; 80061; 81000; 82947; 85027; 85610; 85730; 87081; 93005; 93458; C1760; C1887; C1894; G0278; 36415

== ENCOUNTER 2021-06-08 16:09 | Emergency (ER) | payer MEDICARE ==
[~2021-06-08 16:09] MED LIST changes: +ASPI-1238 PO; +ATOR40TA70 PO; +CARV3.122 PO; +CLN.1T PO; +DULA1.5P2 SQ; +HYDR50TA76 PO; +OMG1KC PO; +PANT20TA18 PO
[2021-06-08] MEDS: LACTATED RINGERS 1,000 ML IV ONE (16:33)
[2021-06-08 16:40] LABS: BASOPHILS # (AUTO) 0.1 10^3/uL (0.0-0.1); BASOPHILS % (AUTO) 1 % (0-10); EOSINOPHILS # (AUTO) 0.2 10^3/uL (0.0-0.3); EOSINOPHILS % (AUTO) 2 % (0-10); HEMATOCRIT 35 % (35-52); HEMOGLOBIN 12.6 g/dL (11.5-16.0); LYMPHOCYTES # (AUTO) 2.5 10^3/uL (1.0-4.0); LYMPHOCYTES % (AUTO) 22 % (12-44); MEAN CORPUSCULAR HEMOGLOBIN 32 pg (25-34); MEAN CORPUSCULAR HGB CONC 37 g/dL (32-36); MEAN CORPUSCULAR VOLUME 88 fL (80-99); MEAN PLATELET VOLUME 10.2 fL (9.0-12.2); MONOCYTES # (AUTO) 0.9 10^3/uL (0.0-1.0); MONOCYTES % (AUTO) 8 % (0-12); NEUTROPHILS # (AUTO) 7.9 10^3/uL (1.8-7.8); NEUTROPHILS % (AUTO) 68 % (42-75); PLATELET COUNT 272 10^3/uL (130-400); WHITE BLOOD COUNT 11.6 10^3/uL (4.3-11.0)
--- NOTE | 2021-06-08 16:51 | ED General ---
General Chief Complaint: Dizziness/Syncope Stated Complaint: SYNCOPE Source of Information: Patient Exam Limitations: No Limitations (ALBETR SERRANO MED STUDENT) History of Present Illness Date Seen by Provider: Jun 08, 2021 Time Seen by Provider: 14:30 Initial Comments This is a [address] Monique that presents today due to low BP and feeling presyncopal. She has significant cardiac history recently that includes stenting. She was in cardiology office today for followup and was found to have BP about 60/48. She was sent to ED due to suspicion of being a bit dehydrated and possibly overmedicated. Wanted her to receive some fluids. She states she has been very lightheaded with standing. She also complains of some pain with urination that is very concentrated and has a bit on an odor. He is feeling a bit nauseas. Other than that, the states she is not really having any other symptoms. (ALBERT SERRANO MED STUDENT) Allergies and Home Medications Allergies Coded Allergies: venom-honey bee (Unverified Allergy, Unknown, 07/14/18) Patient Home Medication List Home Medication List Reviewed: Yes (MARK WHITNEY MD) Aspirin (Aspirin EC) 81 Mg Tablet.dr, 81 MG PO DAILY, (Reported) Entered as Reported by: AURELIANO BUCKLEY on 05/15/21843 Atorvastatin Calcium (Atorvastatin Calcium) 40 Mg Tablet, 40 MG PO DAILY, (Reported) Entered as Reported by: AURELIANO BUCKLEY on 05/15/21844 Carvedilol (Carvedilol) 3.125 Mg Tablet, 3.125 MG PO BID, (Reported) Entered as Reported by: AURELIANO BUCKLEY on 05/15/21844 Cefdinir (Cefdinir) 300 Mg Capsule, 300 MG PO BID Prescribed by: MARK CALDERON on 06/08/211940 Clonidine HCl (Clonidine HCl) 0.1 Mg Tablet, 0.1 MG PO TID, (Reported) Entered as Reported by: AURELIANO BUCKLEY on 05/15/21844 Clopidogrel Bisulfate (Clopidogrel) 75 Mg Tablet, 75 MG PO DAILY, (Reported) Entered as Reported by: AURELIANO BUCKLEY on 05/15/21844 Dulaglutide (Trulicity) 1.5 Mg/0.5 Ml Pen.injctr, 1.5 MG SQ FRI, (Reported) Entered as Reported by: AURELIANO BUCKLEY on 05/15/21 0845 Hydroxyzine HCl (Hydroxyzine HCl) 50 Mg Tablet, 50 MG PO Q6H PRN for ANXIETY, (Reported) Entered as Reported by: AURELIANO BUCKLEY on 05/15/21 0845 Isosorbide Mononitrate (Isosorbide Mononitrate ER) 30 Mg Tab.er.24h, 30 MG PO DAILY, (Reported) Entered as Reported by: AURELIANO BUCKLEY on 05/15/21 0845 Lisinopril/Hydrochlorothiazide (Lisinopril-Hctz 20-25 mg Tab) 1 Each Tablet, 1 EACH PO DAILY, (Reported) Entered as Reported by: FAISAL DUBON on 07/14/18 1014 [place] 3 Polyunsat Fatty Acids (Fish Oil 1,000 mg Capsule) 1,000 Mg Cap, 1,000 MG PO BID WITH MEALS Prescribed by: CATHERINE MONIQUE on 05/15/21 0936 Pantoprazole Sodium (Pantoprazole Sodium) 20 Mg Tablet.dr, 20 MG PO DAILY, (Reported) Entered as Reported by: AURELIANO BUCKLEY on 05/15/21 0844 Trazodone HCl (Trazodone HCl) 150 Mg Tablet, 150 MG PO HS, (Reported) Entered as Reported by: FAISAL DUBON on 07/14/18 1014 Review of Systems Review of Systems Constitutional: No chills; dizziness; No fever EENTM: blurred vision (chronic); No hearing loss, No vision loss Respiratory: No cough, No phlegm, No short of breath, No wheezing Cardiovascular: No chest pain, No palpitations, No syncope (presyncopal) Gastrointestinal: No abdominal pain, No constipation, No diarrhea; nausea; No vomiting Genitourinary: dysuria, other (malodorous) Musculoskeletal: No joint pain, No joint swelling Skin: No lesions, No rash Psychiatric/Neurological: Headache (lightheadedness); Denies Numbness (ALBERT SERRANO MED STUDENT) Past Xtvlenl-Qrxkat-Ofycge Hx Seasonal Allergies Seasonal Allergies: Yes (ALBERT SERRANO MED STUDENT) Past Medical History Surgery/Hospitalization HX: HTN DM Surgeries: Yes (BACK, R SHOULDER, R WRIST, R KNEE, BILAT MASTECTOMY W/IMPLANTS) Appendectomy, Cystectomy, Hysterectomy, Orthopedic Respiratory: No COPD Cardiac: Yes (ANGIOPLASTY) Heart Attack, High Cholesterol, Hypertension Neurological: Yes Stroke Sexually Transmitted Disease: No HIV/AIDS: No Genitourinary: No Gastrointestinal: Yes Gastroesophageal Reflux, Hiatal Hernia Musculoskeletal: Yes Arthritis Endocrine: Yes Diabetes, Non-Insulin dep HEENT: Yes (GLASSES, DENTURES) Cataract Loss of Vision: Bilateral Hearing Impairment: Denies Cancer: Yes Breast Did You Recieve Any Treatments: Yes What Type of Treatment Did You: Surgical Intervention Psychosocial: Yes Anxiety, Depression Integumentary: No Blood Disorders: No Adverse Reaction/Blood Tranf: No (N/A) (ALBERT SERRANO STUDENT) Physical Exam Vital Signs Vital Signs - First Documented 06/08/21 16:17 Temp 36.0 Pulse 78 Resp 16 B/P (MAP) 91/56 (68) (MARK WHITNEY MD) Vital Signs Capillary Refill : (ALBERT SERRANO STUDENT) Height, Weight, BMI Height: 5'2.00" Weight: 125lbs. 6.0oz. [id number]; 23.98 BMI Method:Stated General Appearance: No Apparent Distress, WD/WN HEENT: PERRL/EOMI, Pharynx Normal, Moist Mucous Membranes Respiratory: Chest Non Tender, Lungs Clear, Normal Breath Sounds Cardiovascular: Regular Rate, Rhythm, No Edema, No Murmur, Normal Peripheral Pulses Gastrointestinal: Normal Bowel Sounds, Non Tender, Soft Extremity: Normal Capillary Refill, Non Tender, No Calf Tenderness, No Pedal E avelino Neurologic/Psychiatric: Alert, Oriented x3, No Motor/Sensory Deficits Skin: Normal Color, Warm/Dry (ALBERT SERRANO [employer] STUDENT) Progress/Results/Core Measures Suspected Sepsis SIRS Temperature: Pulse: Respiratory Rate: Laboratory Tests 06/08/21 16:28: White Blood Count 11.6H Blood Pressure / Mean: Laboratory Tests 06/08/21 16:28: Platelet Count 272 (ALBERT SERRANO [employer] STUDENT) Results/Orders Lab Results Laboratory Tests Test 06/08/21 16:28 06/08/21 17:24 Range/Units White Blood Count 11.6 H 4.3-11.0 10^3/uL Red Blood Count 3.91 3.80-5.11 10^6/uL Hemoglobin 12.6 11.5-16.0 g/dL Hematocrit 35 35-52 % Mean Corpuscular Volume 88 80-99 fL Mean Corpuscular Hemoglobin 32 25-34 pg Mean Corpuscular Hemoglobin Concent 37 H 32-36 g/dL Red Cell Distribution Width 12.0 10.0-14.5 % Platelet Count 272 130-400 10^3/uL Mean Platelet Volume 10.2 9.0-12.2 fL Immature Granulocyte % (Auto) 0 % Neutrophils (%) (Auto) 68 42-75 % Lymphocytes (%) (Auto) 22 12-44 % Monocytes (%) (Auto) 8 0-12 % Eosinophils (%) (Auto) 2 0-10 % Basophils (%) (Auto) 1 0-10 % Neutrophils # (Auto) 7.9 H 1.8-7.8 10^3/uL Lymphocytes # (Auto) 2.5 1.0-4.0 10^3/uL Monocytes # (Auto) 0.9 0.0-1.0 10^3/uL Eosinophils # (Auto) 0.2 0.0-0.3 10^3/uL Basophils # (Auto) 0.1 0.0-0.1 10^3/uL Immature Granulocyte # (Auto) 0.1 0.0-0.1 10^3/uL Sodium Level 134 L 135-145 MMOL/L Potassium Level 3.0 L 3.6-5.0 MMOL/L Chloride Level 97 L 98-107 MMOL/L Carbon Dioxide Level 21 21-32 MMOL/L Anion Gap 16 H 5-14 MMOL/L Blood Urea Nitrogen 29 H 7-18 MG/DL Creatinine 1.90 H 0.60-1.30 MG/DL Estimat Glomerular Filtration Rate 29 BUN/Creatinine Ratio 15 Glucose Level 145 H 70-105 MG/DL Calcium Level 10.0 8.5-10.1 MG/DL C-Reactive Protein High Sensitivity 0.30 0.00-0.50 MG/DL Urine Color YELLOW Urine Clarity CLEAR Urine pH 7.5 5-9 Urine Specific [place] 1.015 L 1.016-1.022 Urine Protein NEGATIVE NEGATIVE Urine Glucose (UA) NEGATIVE NEGATIVE Urine Ketones TRACE H NEGATIVE Urine Nitrite POSITIVE H NEGATIVE Urine Bilirubin NEGATIVE NEGATIVE Urine Urobilinogen 0.2 < = 1.0 MG/DL Urine Leukocyte Esterase 3+ H NEGATIVE Urine RBC (Auto) TRACE-I H NEGATIVE Urine RBC NONE /HPF Urine WBC 10-25 H /HPF Urine Squamous Epithelial Cells NONE /HPF Urine Renal Epithelial Cells NONE /HPF Urine Crystals NONE /LPF Urine Bacteria LARGE H /HPF Urine Casts NONE /LPF Urine Mucus NEGATIVE /LPF Urine Culture Indicated YES (MARK WHITNEY MD) My Orders Orders - MARK WHITNEY MD Basic Metabolic Panel (06/08/21 16:22) Cbc With Automated Diff (06/08/21 16:22) Ed Iv/Invasive Line Start (06/08/21 16:22) Lactated Ringers (Lr 1000 Ml Iv Solution (06/08/21 16:30) Ua Culture If Indicated (06/08/21 17:17) Ondansetron Injection (Zofran Injectio (06/08/21 17:30) Urine Culture (06/08/21 17:24) Hs C Reactive Protein (06/08/21 17:44) Ceftriaxone 1 Gm Pre-Mix (Rocephin 1 Gm (06/08/21 17:44) Ns Iv 1000 Ml (Sodium Chloride 0.9%) (06/08/21 18:00) Potassium Cl 10meq/50ml Ivpb (Kcl 10 Meq (06/08/21 18:00) Cho 60g/M 3snack (16-2000 Kay[place]) (06/08/21 Dinner) Ekg Tracing (06/08/21 16:15) (MARK WHITNEY MD) Medications Given in ED (MARK WHITNEY MD) Vital Signs/I&O 06/08/21 06/08/21 16:17 19:58 Temp 36.0 36.0 Pulse 78 69 Resp 16 16 B/P (MAP) 91/56 (68) 118/69 06/08/21 23:59 Intake Total 2100 ml Balance 2100 ml (MARK WHITNEY MD) Vital Signs/I&O Capillary Refill : (ALBERT SERRANO MED STUDENT) Progress Note : Progress Note Patient was hydrated with a liter of LR. She was found to have acute kidney injury and hypokalemia. She received potassium chloride 10 mEq IV along with an additional 1 L bolus of normal saline. She was feeling much improved after these therapies and was able to walk around the room without difficulty. Standing blood pressure was normal. She was advised to stop clonidine per Dr. Monique's recommendations. She received an additional potassium chloride 20 mEq dose orally prior to discharge. See discharge instructions for further discussion. (MARK WHITNEY MD) ECG Initial ECG Impression Date: Jun 08, 2021 Initial ECG Impression Time: 16:15 Initial ECG Rate: 79 Initial ECG Rhythm: Normal Sinus Initial ECG Impression: Normal Comment Normal sinus rhythm with no ST elevation or depression. Possible incomplete left bundle branch block per automated read. No axis deviation. (MARK WHITNEY MD) Departure Impression Primary Impression: Hypotension Qualified Codes: I95.9 - Hypotension, unspecified Additional Impressions: Hypokalemia Urinary tract infection Qualified Codes: N39.0 - Urinary tract infection, site not specified Acute kidney injury Disposition: 01 HOME, SELF-CARE Condition: Improved Departure-Patient Inst. Decision time for Depature: 19:35 (MARK WHITNEY MD) Referrals: [facility] [place] (PCP) Primary Care Physician CONRADO SHER APRN (Family) Primary Care Physician Patient Instructions: Hypokalemia, Urinary Tract Infections in Adults Add. Discharge Instructions: Drink plenty of water to stay well-hydrated and eat a well-balanced diet including foods and beverages that have significant potassium which would include citrus fruits and juices. Complete your antibiotic as prescribed. Follow-up with your primary care provider next week to review urine culture results. You should also have lab work repeated next week to ensure your kidney function and potassium have improved. Stop clonidine as instructed by Dr. Monique. Continue your other medications for the time being. Follow-up with Dr. Monique soon as possible. Call with questions or concerns. Return to the ER if you have worsening symptoms. All discharge instructions reviewed with patient and/or family. Voiced understanding. Scripts Cefdinir (Cefdinir) 300 Mg Capsule 300 MG PO BID, #14 CAP Prov: MARK WHITNEY MD 06/08/21 Copy Copies To 1: HONG VALENTE MD Copies To 2: CATHERINE MONIQUE MD, DEREK MED STUDENT Jun 08, 2021 16:51 MARK WHITNEY MD Jun 08, 2021 19:35
[2021-06-08 17:09] LABS: CREATININE SERUM 1.9 MG/DL (0.60-1.30)
[2021-06-08] MEDS: ONDANSETRON 4 MG/2 ML (SDV) Z0FRAN IVP ONE (17:34)
[2021-06-08 17:35] LABS: BILIRUBIN,URINE NEGATIVE (NEGATIVE); CLARITY,URINE CLEAR; COLOR,URINE YELLOW; GLUCOSE, URINE (UA) NEGATIVE (NEGATIVE); KETONES,URINE TRACE (NEGATIVE); LEUKOCYTE ESTERASE ,URINE 3+ (NEGATIVE); NITRITE,URINE POSITIVE (NEGATIVE); PH,URINE 7.5 (5-9); PROTEIN,URINE NEGATIVE (NEGATIVE)
[2021-06-08 17:42] LABS: BACTERIA,URINE LARGE /HPF
[2021-06-08] MEDS: POTASSIUM CL 10MEQ/50ML IVPB 50 ML IV ONE (17:57)
[2021-06-08] MEDS: NS IV 1000 ML 1,000 ML IV SCH (17:57)
[2021-06-08] MEDS: cefTRIAXone 1 GM PRE-MIX 50 ML IV STA (18:44)
[2021-06-08] MEDS ORDERED: CEFD300C3 PO (19:41)
[2021-06-08 19:58] VITALS: BP 118/69
== END 2021-06-08 20:00 | disposition home or self-care (01) ==
LOC: EDUNIT# 16:09 → ER 16:10
DX: I95.9 Hypotension, unspecified (principal); E87.6 Hypokalemia; N39.0 Urinary tract infection, site not specified; N17.9 Acute kidney failure, unspecified
CPT/HCPCS: 36415; 80048; 81000; 85025; 86141; 87077; 87088; 87186; 93005

== ENCOUNTER 2022-04-04 05:33 | Outpatient (CLI) | payer MEDICARE ==
[~2022-04-04] VITALS: Ht 157.5 cm; Wt 60.7 kg
[~2022-04-04 05:33] MED LIST changes: +CEFD300C3 PO
[2022-04-04] MEDS ORDERED: TRAZ-227 PO (11:08)
[2022-04-04] MEDS ORDERED: LISI10TA25 PO (11:14)
[2022-04-04] MEDS ORDERED: BUPR150T24 PO (11:14)
[2022-04-04] MEDS ORDERED: CYCL5TAB PO (11:14)
[2022-04-04] MEDS ORDERED: CETI10TA17 PO (11:14)
[2022-04-04] MEDS ORDERED: SERT-414 PO (11:14)
== END 2022-04-04 11:31 | disposition home or self-care (01) ==
LOC: PREOP 05:33
PROVIDERS: ATTEND Surgery
DX: Z01.818 Encounter for other preprocedural examination (principal)

== ENCOUNTER 2022-04-16 08:15 | Day surgery (SDC) | payer MEDICARE ==
[~2022-04-16] VITALS: Ht 157.5 cm; Wt 60.7 kg
[2022-04-16] VITALS (8 sets, daily range): BP systolic 90–171; BP diastolic 53–106
[~2022-04-16 08:15] MED LIST changes: +BUPR150T24 PO; +CETI10TA17 PO; +CYCL5TAB PO; +SERT-414 PO; +TRAZ-227 PO
[2022-04-16] MEDS ORDERED: LACTATED RINGERS 1,000 ML IV STA (08:17)
[2022-04-16] MEDS ORDERED: HURRICAINE EXT TUBE (BENZOCAINE) XX PRN (08:30)
--- NOTE | 2022-04-16 08:32 | Progress Note-Pre Operative ---
Pre-Operative Progress Note Date of Available H&P: Mar 27, 2022 Date H&P Reviewed: Apr 16, 2022 Time H&P Reviewed: 08:25 History & Physical: H&P Reviewed, Patient Examed, No changes noted Pre-Operative Diagnosis: Dysphagia, Esophageal stricture, hemoccult + NEYMAR RICHARDSON DO Apr 16, 2022 08:32
[2022-04-16] MEDS ORDERED: PROPOFOL INJECTION 50 ML IV ONE (08:34)
--- NOTE | 2022-04-16 09:31 | Progress Note-Post Operative ---
Post-Operative Progess Note Surgeon (s)/Work Environment Safety Inspector (s) Surgeon NEYMAR RICHARDSON DO Work Environment Safety Inspector: Juvenal Callaway, MSIII Pre-Operative Diagnosis Dysphagia, Esophageal stricture, hemoccult + Post-Operative Diagnosis Gastritis with bleed Antral mass Polyps Diverticula Int hemorrhoids Procedure & Operative Findings Date of Procedure 04/16/22 Procedure Performed/Findings EGD with biopsy Colonoscopy with snare polypectomy PROCEDURE NOTE: After informed consent was obtained, the patient was brought to the endoscopy suite, placed in bed in left lateral decubitus position. She was administered IV sedation by the LICENSING SERVICES CLERK who then monitored vitals the entire time, heart rate, blood pressure and pulse ox and the scope was inserted down the mouth through the esophagus into the stomach. On the way down, did not see any stricture or esophagitis; pushed into the stomach and pushed past the antrum into the duodenum. Duodenum looked good. Pulled back, noted what looked like a mass and did a biopsy of the antral mass. I also noted some old blood and inflammation. I hen retroflexed the scope, did not see a hiatal hernia, took a picture of the antrum and then pulled the scope into the GE junction. Then did a biopsy of the GE junction. Pushed the scope back into the stomach, suctioned all the air out of the stomach. At this point pulled the scope up the esophagus and out the mouth. Switched camera, switched gloves, went down below, started the colonoscopy. Pushed all the way to about 150 cm and pushed into the cecum, took a picture of appendiceal orifice and noted the ileocecal valve. On the way I had found a polyp in the descending colon, transverse colon, ascending colon and then one near the cecum. All of them were removed with hot snare and suctioned up. Then slowly withdrew the scope insufflating to look circumferentially at the crane starting in the cecum, up the ascending colon to the hepatic flexure, then down the transverse colon, splenic flexure, into the descending colon down in the sigmoid and then into the rectal vault. Saw some diverticula in the descending colon, took a picture and then found another polyp in the rectum. Finally retroflexed the scope. Took a picture of the internal hemorrhoids. The patient tolerated the procedure and she recovered in the endoscopy suite. Recommended for repeat colonoscopy in 3 years Anesthesia Type IV sedation by Anesthesia Estimated Blood Loss Estimated blood loss (mL): scant Specimens/Packing Specimens Removed antral mass bx body of stomach bx GE jxn bx Desc colon polyp Transverse colon polyp Asc colon polyp cecum polyp rectal polyp NEYMAR RICHARDSON DO Apr 16, 2022 09:31
--- NOTE | 2022-04-16 09:59 | Endoscopy Discharge Instruct ---
Endo Procedure/Findings Findings 1.: Gastritis 2.: Polyp 3.: Diverticulosis 4.: Internal Hemorrhoids Discharge Instructions - Activity: You might feel a little sleepy until tomorrow. This is due to the medicine you received to relax you. Until tomorrow, you should: NOT drive a car, operate machinery or power tools. NOT drink any alcoholic beverages. NOT make any important decisions or sign importortant papers. Do not return to work until tomorrow, unless otherwise instructed. Resume previo us activities tomorrow. Diet: Start by taking liquids. If you tolerate liquids, advance to solid food. 1.: EGD in 3 years 2.: Colonscopy in 3 years Notify Physician - If you experience excessive bleeding, unusual abdominal pain, fever, or chest pain, contact your doctor immediately. NEYMAR RICHARDSON DO Apr 16, 2022 09:58
--- NOTE | 2022-04-16 13:23 | Anesthesia-General Post-Op ---
MAC Patient Condition Mental Status/LOC: Same as Preop Cardiovascular: Satisfactory Nausea/Vomiting: Absent Respiratory: Satisfactory Pain: Controlled Complications: Absent Post Op Complications Complications None Follow Up Care/Instructions Patient Instructions None needed. Anesthesiology Discharge Order Discharge Order Patient was doing well this morning after the procedure with no complaints, stable vital signs, no apparent adverse anesthesia problems. No complications reported per nursing. ANNETTE MONTERO DO Apr 16, 2022 13:23
== END 2022-04-16 11:06 | disposition home or self-care (01) ==
LOC: ENDO 08:15
PROVIDERS: ATTEND Surgery
DX: D12.2 Benign neoplasm of ascending colon (principal); D12.3 Benign neoplasm of transverse colon; D12.4 Benign neoplasm of descending colon; D12.0 Benign neoplasm of cecum; K29.71 Gastritis, unspecified, with bleeding; K31.89 Other diseases of stomach and duodenum; K62.1 Rectal polyp; K57.30 Diverticulosis of large intestine without perforation or abscess without bleeding; Z28.310 Unvaccinated for COVID-19; Z87.891 Personal history of nicotine dependence; Z79.02 Long term (current) use of antithrombotics/antiplatelets; Z87.19 Personal history of other diseases of the digestive system
CPT/HCPCS: 82947; 88305

== ENCOUNTER 2022-05-16 05:40 | Outpatient (CLI) | payer MEDICARE ==
[~2022-05-16] VITALS: Ht 157.5 cm; Wt 60.7 kg
[2022-05-17] MEDS ORDERED: CLOP75TA28 PO (11:10)
[2022-05-17] MEDS ORDERED: ASPI-1238 PO (11:10)
== END 2022-05-17 11:21 | disposition home or self-care (01) ==
LOC: PREOP 05:40
PROVIDERS: ATTEND Surgery
DX: Z01.818 Encounter for other preprocedural examination (principal)

== ENCOUNTER 2022-05-21 08:05 | Day surgery (SDC) | payer MEDICARE ==
[~2022-05-21] VITALS: Ht 157.5 cm; Wt 60.7 kg
[2022-05-21] MEDS ORDERED: LACTATED RINGERS 1,000 ML IV STA (08:18)
[2022-05-21] MEDS ORDERED: HURRICAINE EXT TUBE (BENZOCAINE) ONE (08:24)
[2022-05-21] MEDS ORDERED: LACTATED RINGERS 1,000 ML IV ONE (08:24)
[2022-05-21 08:30] VITALS: BP 201/116
[2022-05-21] MEDS ORDERED: HURRICAINE EXT TUBE (BENZOCAINE) XX PRN (08:30)
--- NOTE | 2022-05-21 08:35 | Progress Note-Pre Operative ---
Pre-Operative Progress Note Date of Available H&P: May 08, 2022 Date H&P Reviewed: May 21, 2022 Time H&P Reviewed: 08:32 History & Physical: H&P Reviewed, Patient Examed, No changes noted Pre-Operative Diagnosis: Gastric Adenoma NEYMAR RICHARDSON DO May 21, 2022 08:35
[2022-05-21] MEDS ORDERED: PROPOFOL INJECTION 50 ML IV ONE (09:56)
[2022-05-21] MEDS ORDERED: LABETALOL HCL 20 MG/4 ML VIAL ONE ×2 (10:31→10:32)
--- NOTE | 2022-05-21 10:37 | Anesthesia-General Post-Op ---
MAC Patient Condition Mental Status/LOC: Same as Preop Cardiovascular: Satisfactory Nausea/Vomiting: Absent Respiratory: Satisfactory Pain: Controlled Complications: Absent Post Op Complications Complications None Follow Up Care/Instructions Patient Instructions None needed. Anesthesiology Discharge Order Discharge Order Patient is doing well, no complaints, stable vital signs, no apparent adverse anesthesia problems. No complications reported per nursing. BOBBI STEPHENS CRNA May 21, 2022 10:37
--- NOTE | 2022-05-21 10:39 | Progress Note-Post Operative ---
Post-Operative Progess Note Surgeon (s)/Mason Tender Restoration Labor (s) Surgeon NEYMAR RICHARDSON DO [employer] T[employer]oration Labor: none Pre-Operative Diagnosis Gastric Adenoma Post-Operative Diagnosis same pending path Procedure & Operative Findings Date of Procedure 05/21/22 Procedure Performed/Findings EGD with Snare Polypectomy with cautery PROCEDURE NOTE: After informed consent was obtained, the patient was brought to the endoscopy suite, placed in bed in left lateral decubitus position. She was administered IV sedation by the POLISHER EYEGLASS FRAMES who then monitored vitals the entire time, heart rate, blood pressure and pulse ox and the scope was inserted down the mouth through the esophagus into the stomach. On the way down, noted some mild esophagitis, pushed into the stomach and toward the antrum. Pt had an adenoma that can turn into cancer; it needed to be removed. Used a snare with cautery and had to take the large polyp in pieces. I actually had to use a [place] net to grab the polyp pieces and pull the scope entirely out of the mouth. Pushed scope back down and took a little bit more of the tissue; suspected polyp. This portion was able to be suctioned up. Finally, suctioned all the air out of the stomach and then pulled the scope up the esophagus and out the mouth. The patient tolerated the procedure, and she recovered in endoscopy suite. Anesthesia Type IV sedation by POLISHER EYEGLASS FRAMES Estimated Blood Loss Estimated blood loss (mL): scant Specimens/Packing Specimens Removed Gastric Adenoma NEYMAR RICHARDSON DO May 21, 2022 10:39
[2022-05-21 10:40] VITALS: BP 148/77
--- NOTE | 2022-05-21 10:40 | Endoscopy Discharge Instruct ---
Endo Procedure/Findings Findings 1.: Polyp Discharge Instructions - Activity: You might feel a little sleepy until tomorrow. This is due to the medicine you received to relax you. Until tomorrow, you should: NOT drive a car, operate machinery or power tools. NOT drink any alcoholic beverages. NOT make any important decisions or sign importortant papers. Do not return to work until tomorrow, unless otherwise instructed. Resume pr evious activities tomorrow. Diet: Start by taking liquids. If you tolerate liquids, advance to solid food. 1.: EGD in 1 year Notify Physician - If you experience excessive bleeding, unusual abdominal pain, fever, or chest pain, contact your doctor immediately. NEYMAR RICHARDSON DO May 21, 2022 10:40
[2022-05-21 10:45] VITALS: BP 163/82
[2022-05-21 11:20] VITALS: BP 148/77
== END 2022-05-21 11:43 | disposition home or self-care (01) ==
LOC: ENDO 08:05
PROVIDERS: ATTEND Surgery
DX: D13.1 Benign neoplasm of stomach (principal); E11.9 Type 2 diabetes mellitus without complications; E66.9 Obesity, unspecified; D12.4 Benign neoplasm of descending colon; K57.30 Diverticulosis of large intestine without perforation or abscess without bleeding; K64.0 First degree hemorrhoids; K21.00 Gastro-esophageal reflux disease with esophagitis, without bleeding; Z87.891 Personal history of nicotine dependence; Z79.85 Long-term (current) use of injectable non-insulin antidiabetic drugs; Z79.899 Other long term (current) drug therapy; Z28.310 Unvaccinated for COVID-19; Z68.24 Body mass index [BMI] 24.0-24.9, adult
CPT/HCPCS: 82947

== ENCOUNTER → 2022-06-25 | Outpatient (CLI) | payer MEDICARE ==
[2022-06-25 12:34] LABS: ALBUMIN 4.8 GM/DL (3.2-4.5); CHLORIDE 103 MMOL/L (98-107); POTASSIUM 4.3 MMOL/L (3.6-5.0); SODIUM 137 MMOL/L (135-145)
[2022-06-25 12:35] LABS: CALCIUM 10.3 MG/DL (8.5-10.1)
[2022-06-25 12:36] LABS: GLUCOSE 168 MG/DL (70-105); TOTAL PROTEIN 7.7 GM/DL (6.4-8.2); TRIGLYCERIDES 166 MG/DL (<150); VLDL CHOLESTEROL 33 MG/DL (5-40)
[2022-06-25 12:37] LABS: CARBON DIOXIDE 25 MMOL/L (21-32)
[2022-06-25 12:38] LABS: BILIRUBIN,TOTAL 0.7 MG/DL (0.1-1.0)
[2022-06-25 12:40] LABS: ALKALINE PHOSPHATASE 68 U/L (40-136); CREATININE SERUM 1.12 MG/DL (0.60-1.30); GFR ESTIMATED 54
[2022-06-25 12:41] LABS: BUN/CREATININE RATIO 16; CHOLESTEROL 152 MG/DL (< 200)
[2022-06-25 12:42] LABS: HDL CHOLESTEROL 55 MG/DL (40-60)
[2022-06-25 12:43] LABS: ALANINE AMINOTRANSFERASE 39 U/L (0-55)
== END ==
LOC: CARD 12:09
PROVIDERS: ATTEND Internal Medicine Cardiovascular Disease
DX: I11.9 Hypertensive heart disease without heart failure (principal); E78.2 Mixed hyperlipidemia; I65.23 Occlusion and stenosis of bilateral carotid arteries
CPT/HCPCS: 80053; 80061; C8929; 36415; 93306

== ENCOUNTER → 2022-07-30 | Outpatient (CLI) | payer MEDICARE ==
[2022-07-30 11:58] LABS: HEMATOCRIT 44 % (35-52); HEMOGLOBIN 15.4 g/dL (11.5-16.0); MEAN CORPUSCULAR HEMOGLOBIN 32 pg (25-34); MEAN CORPUSCULAR HGB CONC 35 g/dL (32-36); MEAN CORPUSCULAR VOLUME 93 fL (80-99); MEAN PLATELET VOLUME 9.8 fL (9.0-12.2); PLATELET COUNT 267 10^3/uL (130-400); WHITE BLOOD COUNT 10.3 10^3/uL (4.3-11.0)
[2022-07-30 12:25] LABS: ALBUMIN 4.9 GM/DL (3.2-4.5); CALCIUM 10.2 MG/DL (8.5-10.1); CREATININE SERUM 1.1 MG/DL (0.60-1.30); PHOSPHORUS 3.1 MG/DL (2.3-4.7); POTASSIUM 4.5 MMOL/L (3.6-5.0); URIC ACID 2.9 MG/DL (2.6-7.2)
[2022-07-30 12:52] LABS: URINE CREATININE FOR RATIO 16 MG/DL (30-125); URINE PROTEIN FOR RATIO ONLY < 6 MG/DL (6-12)
--- NOTE | 2022-07-30 14:42 | Diagnostic Imaging Report ---
PROCEDURE: US Renal Bilateral. TECHNIQUE: Multiple Real-time grayscale images were obtained over the kidneys in various projections bilaterally. INDICATION: Chronic kidney disease, stage II. FINDINGS: The right kidney measures 10.3 x 4.4 x 5.5 cm and the left kidney measures 9.2 x 4.3 x 5.4 cm. The cortical thickness and echogenicity appear normal. There appears to be a cyst in the upper pole of the left kidney measuring approximately 18 mm in size. There is an echogenic focus of 9 mm in size along the medial aspect of the left kidney, suspicious for a calculus. There does appear to be some mild left-sided hydronephrosis. The right kidney is unremarkable. The bladder volume is 211 mL. Bilateral ureteral jets were visualized. IMPRESSION: 1. Left renal cyst. 2. There is a 9 mm echogenic focus in the left kidney with mild hydronephrosis. An obstructing calculus cannot be entirely excluded. A CT urinary tract study may be useful for further evaluation. Dictated by: Dictated on workstation # [id number]
== END ==
LOC: RAD 11:37
PROVIDERS: ATTEND Internal Medicine Nephrology
DX: N28.1 Cyst of kidney, acquired (principal); N13.30 Unspecified hydronephrosis; E83.9 Disorder of mineral metabolism, unspecified; E87.6 Hypokalemia; E11.22 Type 2 diabetes mellitus with diabetic chronic kidney disease; N18.30 Chronic kidney disease, stage 3 unspecified
CPT/HCPCS: 36415; 76770; 80069; 82570; 82652; 83970; 84156; 84550; 85027

== ENCOUNTER → 2022-09-24 | Outpatient (CLI) | payer MEDICARE ==
[2022-09-24 15:46] LABS: ALBUMIN 4.6 GM/DL (3.2-4.5)
[2022-09-24 15:47] LABS: POTASSIUM 3.7 MMOL/L (3.6-5.0)
[2022-09-24 15:48] LABS: CALCIUM 9.8 MG/DL (8.5-10.1)
[2022-09-24 15:52] LABS: PHOSPHORUS 2.6 MG/DL (2.3-4.7)
[2022-09-24 15:53] LABS: CREATININE SERUM 0.94 MG/DL (0.60-1.30)
== END ==
LOC: LAB 15:22
PROVIDERS: ATTEND Internal Medicine Nephrology
DX: N18.2 Chronic kidney disease, stage 2 (mild) (principal)
CPT/HCPCS: 36415; 80069